=== PATIENT | male | born 1965 | race Caucasian/White ===

== ENCOUNTER 2018-01-21 20:07 | Inpatient (IN) | payer MEDICAID ==
[~2018-01-21] VITALS: Ht 167.6 cm; Wt 119.0 kg
[~2018-01-21 20:07] MED LIST: ALBU8HFA PO; AMLO10TA PO; BUDE10.2 INH; EZET10TA14 PO; FENO134C PO; IBUP-1986 PO; IPRA4AER IH; LEVO750T46 PO; LISI10TA4 PO; METF500T7 PO; MUPI15CR TOP; PANT20TA2 PO; ROSU10TA27 PO; TAM75C PO
[2018-01-21] MEDS ORDERED: albuterol 2.5 MG/3 ML nebule CONTNEB PRN (20:45)
[2018-01-21] MEDS ORDERED: methylPREDNISolone sod succ 125mg/2ml vial IV ONE (20:45)
[2018-01-21] MEDS ORDERED: normal saline 1000ML IV soln IVB ONE (20:45)
[2018-01-21 20:51] LABS: BASOPHILS % (AUTO) 0.3 % (0-1); EOSINOPHILS # (AUTO) 0.3 X10'3 (0-0.9); EOSINOPHILS % (AUTO) 2.7 % (0-6); HEMATOCRIT 45.8 % (42.0-52.0); HEMOGLOBIN 14.8 g/dl (14.0-17.9); LYMPHOCYTES # (AUTO) 1.5 X10'3 (1.1-4.8); LYMPHOCYTES % (AUTO) 14.7 % (21-51); MEAN CORPUSCULAR HEMOGLOBIN 27.8 PG (27.0-31.0); MEAN CORPUSCULAR HGB CONC 32.4 % (33.0-36.5); MEAN PLATELET VOLUME 7.3 FL (7.4-10.4); MONOCYTES # (AUTO) 0.8 X10'3 (0-0.9); MONOCYTES % (AUTO) 7.7 % (2-12); NEUTROPHILS # (AUTO) 7.6 X10'3 (1.8-7.7); NEUTROPHILS % (AUTO) 74.6 % (42-75); PLATELET COUNT 292 X10'3 (140-440); RED BLOOD COUNT 5.32 X10'6 (4.70-6.10); WHITE BLOOD COUNT 10.1 X10'3 (4.5-11.0)
[2018-01-21] MEDS ORDERED: temazepam 15mg capsule PO PRN (21:00)
[2018-01-21 21:11] LABS: ALANINE AMINOTRANSFERASE 21 U/L (12-78); ALBUMIN 2.9 G/DL (3.4-5.0); ALBUMIN/GLOBULIN RATIO 0.7 (1.1-1.5); ALKALINE PHOSPHATASE 102 IU/L (46-116); ANION GAP 6 (8-16); ASPARTATE AMINO TRANSFERASE 8 U/L (10-37); BILIRUBIN,TOTAL 0.2 MG/DL (0.1-1.0); BLOOD UREA NITROGEN 19 MG/DL (7-18); BUN/CREATININE RATIO 14.7 (5.4-32.0); CALCIUM 8.4 MG/DL (8.5-10.1); CHLORIDE 104 MMOL/L (99-107); CREATININE 1.29 MG/DL (0.60-1.10); GLUCOSE 209 MG/DL (70-104); POTASSIUM 4.7 MMOL/L (3.5-5.1); SODIUM 144 MMOL/L (135-145); TOTAL CARBON DIOXIDE 34.1 MMOL/L (24-32); TOTAL PROTEIN 6.8 G/DL (6.4-8.2); eGFR 58 ML/MIN
[2018-01-21 21:15] LABS: ABG HCO3 32.1 mmol/L (22.0-26.0); ABG OXYGEN SATURATION 93.4 % (95-98); ABG PCO2 (T) 55.7 mmHg (35.0-48.0); ABG PH (T) 7.377 (7.350-7.450); ABG PO2 (T) 66.1 mmHg (83-108); ALLEN'S TEST Positive; FCOHb 1.4 % (0.5-1.5); FLOW 3 L/min; FMetHb 0.2 % (0.3-1.12); FO2Hb 91.9 % (94-100); PATIENT TEMPERATURE 36.7; RESPIRATORY RATE (OBSERVED) 20 b/min; TOTAL HEMOGLOBIN 15.8 G/dl (14.0-18.0)
[2018-01-21] MEDS ORDERED: normal saline 1000ml 1,000 ML IV SCH (22:58)
[2018-01-21] MEDS ORDERED: HYDROmorphone 1 mg/ml syringe IV PRN ×2 (23:00)
[2018-01-21] MEDS ORDERED: HYDROcodone/acetaminophen 10/325mg tab PO PRN (23:00)
[2018-01-21] MEDS ORDERED: HYDROcodone/acetaminophen 5mg/325mg tablet PO PRN (23:00)
[2018-01-21] MEDS ORDERED: diphenhydrAMINE 50 mg/ml inj IV PRN (23:00)
[2018-01-21] MEDS ORDERED: bisacodyl 10mg suppository rectal RC PRN (23:00)
[2018-01-21] MEDS ORDERED: metoclopramide 5 mg/ml inj IV PRN (23:00)
[2018-01-21] MEDS ORDERED: morphine 2 MG/ML inj. syringe IV PRN ×2 (23:00)
[2018-01-21] MEDS ORDERED: magnesium hydroxide 30ml (MOM) UD suspension PO PRN (23:00)
[2018-01-21] MEDS ORDERED: mag hydrox/Alum hydrox/simeth 30ml oral suspension PO PRN (23:00)
[2018-01-21] MEDS ORDERED: acetaminophen 325mg tablet PO PRN (23:00)
[2018-01-21] MEDS ORDERED: diphenhydrAMINE 25mg capsule PO PRN (23:00)
[2018-01-21] MEDS ORDERED: ondansetron/PF 4mg/2ml inj IV PRN (23:00)
[2018-01-21] MEDS ORDERED: acetaminophen 650mg rectal suppository RC PRN (23:00)
[2018-01-21] MEDS ORDERED: INSU100I31 SQ (23:04)
[2018-01-21] MEDS ORDERED: MESSAGE TO PHARMACY PO ONE (23:05)
[2018-01-21] MEDS ORDERED: dextrose 50%-water 50ml dispensing syringe IV PRN ×2 (23:05)
[2018-01-21] MEDS ORDERED: glucagon, human recombinant 1mg kit SUBCUT PRN (23:05)
[2018-01-21] MEDS ORDERED: dextrose ORAL solution 15 GM/59 ML bottle PO PRN ×2 (23:05)
[2018-01-21] MEDS ORDERED: insulin Lispro (HumaLOG) vial - multi-dose SQ SCH (23:05)
[2018-01-21] MEDS ORDERED: ipratropium/albuterol 3ml nebule IH PRN ×2 (23:15→23:19)
[2018-01-21 23:29] LABS: MAGNESIUM 1.7 MG/DL (1.5-2.4); PHOSPHORUS 6.2 MG/DL (2.3-4.5)
[2018-01-21 23:40] VITALS: BP 156/92
[2018-01-21 23:43] LABS: D-DIMER 0.44 MG/L FEU (0-0.50)
[2018-01-22] VITALS (8 sets, daily range): BP systolic 96–148; BP diastolic 48–115
[2018-01-22] MEDS ORDERED: methylPREDNISolone sod succ 125mg/2ml vial IV ONE
[2018-01-22] MEDS: heparin, porcine 5000 units/ml vial SQ SCH ×3 (00:17→16:49)
[2018-01-22] MEDS: furosemide 10 MG/1 ML 10ml inj IV SCH ×2 (00:17→09:08)
[2018-01-22 03:16] LABS: BASOPHILS # (AUTO) 0.1 X10'3 (0-0.2); BASOPHILS % (AUTO) 0.9 % (0-1); EOSINOPHILS % (AUTO) 0 % (0-6); HEMATOCRIT 47.6 % (42.0-52.0); HEMOGLOBIN 15.4 g/dl (14.0-17.9); LYMPHOCYTES # (AUTO) 0.4 X10'3 (1.1-4.8); LYMPHOCYTES % (AUTO) 3.3 % (21-51); MEAN CORPUSCULAR HGB CONC 32.5 % (33.0-36.5); MEAN CORPUSCULAR VOLUME 86.3 FL (78-98); MEAN PLATELET VOLUME 7.8 FL (7.4-10.4); MONOCYTES % (AUTO) 0.4 % (2-12); NEUTROPHILS # (AUTO) 10.6 X10'3 (1.8-7.7); NEUTROPHILS % (AUTO) 95.4 % (42-75); PLATELET COUNT 273 X10'3 (140-440); RED BLOOD COUNT 5.52 X10'6 (4.70-6.10); RED CELL DISTRIBUTION WIDTH 14.8 % (11.5-14.5); WHITE BLOOD COUNT 11.1 X10'3 (4.5-11.0)
[2018-01-22 03:56] LABS: ALANINE AMINOTRANSFERASE 21 U/L (12-78); ALBUMIN 3.2 G/DL (3.4-5.0); ALBUMIN/GLOBULIN RATIO 0.7 (1.1-1.5); ALKALINE PHOSPHATASE 105 IU/L (46-116); ANION GAP 6 (8-16); ASPARTATE AMINO TRANSFERASE 5 U/L (10-37); BILIRUBIN,TOTAL 0.4 MG/DL (0.1-1.0); BLOOD UREA NITROGEN 29 MG/DL (7-18); BUN/CREATININE RATIO 19.1 (5.4-32.0); CALCIUM 9.3 MG/DL (8.5-10.1); CHLORIDE 98 MMOL/L (99-107); CHOL/HDL RATIO 6.2 (0.00-4.99); CHOLESTEROL 259 MG/DL (0-200); CREATININE 1.52 MG/DL (0.60-1.10); GLUCOSE 432 MG/DL (70-104); HDL CHOLESTEROL 42 MG/DL (35-60); LDL CHOLESTEROL 191 MG/DL (50-100); POTASSIUM 4.9 MMOL/L (3.5-5.1); SODIUM 138 MMOL/L (135-145); TOTAL CARBON DIOXIDE 33.7 MMOL/L (24-32); TOTAL PROTEIN 7.5 G/DL (6.4-8.2); TRIGLYCERIDES 101 MG/DL (20-135); eGFR 48 ML/MIN
[2018-01-22 07:26] LABS: ABG BASE EXCESS 1.9 mmol/L (-2.0-3.0); ABG HCO3 30.2 mmol/L (22.0-26.0); ABG OXYGEN SATURATION 96.3 % (95-98); ABG PH (T) 7.305 (7.350-7.450); ABG PO2 (T) 87.6 mmHg (83-108); ALLEN'S TEST Positive; FCOHb 1.1 % (0.5-1.5); FMetHb 0.3 % (0.3-1.12); MINUTE VOLUME 22 L/min; RESPIRATORY RATE 20 b/min; RESPIRATORY RATE (OBSERVED) 28 b/min; TIDAL VOLUME 723 mL; TOTAL HEMOGLOBIN 16.4 G/dl (14.0-18.0)
[2018-01-22] MEDS ORDERED: normal saline 1000ml 1,000 ML IV ONE (07:50)
[2018-01-22] MEDS ORDERED: insulin Lispro (HumaLOG) vial - multi-dose SQ ONE (07:50)
[2018-01-22] MEDS ORDERED: dextrose 50%-water 50ml dispensing syringe IV PRN ×3 (07:50→10:15)
[2018-01-22] MEDS: docusate sod 100mg capsule PO SCH ×2 (08:00→19:34)
[2018-01-22] MEDS ORDERED: insulin regular, human 100 UNIT in normal saline 100ml IV soln 99 ML IV SCH ×2 (08:10)
[2018-01-22] MEDS: famotidine 20mg tablet PO SCH ×2 (09:07→19:35)
[2018-01-22] MEDS: levoFLOXACIN-Levaquin 750MG/D5 150 ML IV SCH (09:07)
[2018-01-22] MEDS ORDERED: MESSAGE TO PHARMACY PO ONE (10:15)
[2018-01-22] MEDS ORDERED: dextrose ORAL solution 15 GM/59 ML bottle PO PRN ×2 (10:15)
[2018-01-22] MEDS: normal saline 1000ml 1,000 ML IV SCH ×2 (10:15→19:40)
[2018-01-22] MEDS ORDERED: glucagon, human recombinant 1mg kit SUBCUT PRN (10:15)
[2018-01-22] MEDS: albuterol 2.5 MG/3 ML nebule NEB SCH ×3 (11:00→19:00)
[2018-01-22] MEDS: ipratropium/albuterol 3ml nebule NEB SCH ×4 (12:39→23:09)
[2018-01-22] MEDS: insulin Lispro (HumaLOG) vial - multi-dose SQ SCH ×3 (13:03→21:33)
[2018-01-22] MEDS: methylPREDNISolone sod succ 125mg/2ml vial IV SCH ×2 (14:22→19:34)
[2018-01-22 18:20] LABS: CLARITY,URINE CLEAR (Clear); COLOR,URINE YELLOW (Yellow); GLUCOSE, URINE >=1000 mg/dl (Neg); KETONES,URINE NEGATIVE (Neg); LEUKOCYTE ESTERASE ,URINE NEGATIVE (Neg); NITRITES, URINE NEGATIVE (Neg); OCCULT BLOOD,URINE TRACE-INTACT (Neg); PROTEIN,URINE 100 mg/dl (Neg); UROBILINOGEN,URINE 0.2 E.U/dL (0.2-1.0)
[2018-01-22 18:21] LABS: UA COLLECTION TYPE URINAL
[2018-01-22 18:27] LABS: URINE AMPHETAMINE SCREEN NEGATIVE (Neg); URINE BARBITUATE SCREEN NEGATIVE (Neg); URINE BENZODIAZEPINES SCREEN NEGATIVE (Neg); URINE CANNABINOID SCREEN POSITIVE (Neg); URINE COCAINE SCREEN NEGATIVE (Neg); URINE METHADONE SCREEN NEGATIVE (Neg); URINE OPIATE SCREEN NEGATIVE (Neg); URINE PHENCYCLIDINE SCREEN NEGATIVE (Neg)
[2018-01-22 18:32] LABS: BACTERIA,URINE NONE SEEN /HPF (Neg); RBC,URINE 0-2 /HPF (0-2); WBC,URINE 0-4 /HPF (0-4)
[2018-01-22 18:33] LABS: SQUAMOUS EPITHELIAL CELL,UR NONE SEEN /LPF (FEW)
[2018-01-22] MEDS: budesonide 0.5mg/2ml UD nebule IH SCH (19:22)
[2018-01-22] MEDS: furosemide 40mg/4ml inj IV SCH (19:34)
[2018-01-22] MEDS: lactobacillus rhamnosus 10,000 MMU CELLS/CAPSULE PO SCH (19:35)
[2018-01-22] MEDS: insulin glargine (Lantus) pen - multi-dose SQ SCH (21:35)
[2018-01-23] VITALS (7 sets, daily range): BP systolic 113–148; BP diastolic 63–89
[2018-01-23] MEDS: methylPREDNISolone sod succ 125mg/2ml vial IV SCH (01:14)
[2018-01-23] MEDS: heparin, porcine 5000 units/ml vial SQ SCH ×4 (01:14→23:30)
[2018-01-23 02:02] LABS: BASOPHILS # (AUTO) 0.1 X10'3 (0-0.2); BASOPHILS % (AUTO) 0.9 % (0-1); EOSINOPHILS % (AUTO) 0 % (0-6); HEMATOCRIT 45.2 % (42.0-52.0); HEMOGLOBIN 14.6 g/dl (14.0-17.9); LYMPHOCYTES # (AUTO) 0.4 X10'3 (1.1-4.8); LYMPHOCYTES % (AUTO) 2.4 % (21-51); MEAN CORPUSCULAR HEMOGLOBIN 27.8 PG (27.0-31.0); MEAN CORPUSCULAR HGB CONC 32.3 % (33.0-36.5); MEAN CORPUSCULAR VOLUME 86.1 FL (78-98); MONOCYTES # (AUTO) 0.3 X10'3 (0-0.9); MONOCYTES % (AUTO) 2.1 % (2-12); NEUTROPHILS # (AUTO) 15.6 X10'3 (1.8-7.7); NEUTROPHILS % (AUTO) 94.6 % (42-75); PLATELET COUNT 299 X10'3 (140-440); RED BLOOD COUNT 5.25 X10'6 (4.70-6.10); WHITE BLOOD COUNT 16.5 X10'3 (4.5-11.0)
[2018-01-23 02:40] LABS: ALANINE AMINOTRANSFERASE 20 U/L (12-78); ALBUMIN 2.9 G/DL (3.4-5.0); ALBUMIN/GLOBULIN RATIO 0.7 (1.1-1.5); ALKALINE PHOSPHATASE 96 IU/L (46-116); ASPARTATE AMINO TRANSFERASE 8 U/L (10-37); BILIRUBIN,TOTAL 0.3 MG/DL (0.1-1.0); BLOOD UREA NITROGEN 36 MG/DL (7-18); CHLORIDE 97 MMOL/L (99-107); GLUCOSE 409 MG/DL (70-104); SODIUM 136 MMOL/L (135-145); TOTAL PROTEIN 6.9 G/DL (6.4-8.2)
[2018-01-23 02:43] LABS: POTASSIUM 4.8 MMOL/L (3.5-5.1)
[2018-01-23 02:44] LABS: ANION GAP 8 (8-16); BUN/CREATININE RATIO 27.7 (5.4-32.0); CALCIUM 8.7 MG/DL (8.5-10.1); TOTAL CARBON DIOXIDE 31.5 MMOL/L (24-32); eGFR 58 ML/MIN
[2018-01-23] MEDS: ipratropium/albuterol 3ml nebule NEB SCH ×6 (03:07→23:28)
[2018-01-23] MEDS: insulin Lispro (HumaLOG) vial - multi-dose SQ SCH ×5 (03:40→21:26)
[2018-01-23] MEDS: albuterol 2.5 MG/3 ML nebule NEB SCH ×2 (07:00→11:00)
[2018-01-23] MEDS: lactobacillus rhamnosus 10,000 MMU CELLS/CAPSULE PO SCH ×2 (07:33→20:03)
[2018-01-23] MEDS: docusate sod 100mg capsule PO SCH ×2 (07:33→20:03)
[2018-01-23] MEDS: levoFLOXACIN-Levaquin 750MG/D5 150 ML IV SCH (07:34)
[2018-01-23] MEDS: famotidine 20mg tablet PO SCH ×2 (07:34→20:03)
[2018-01-23] MEDS: methylPREDNISolone sod succ/PF 40mg inj. IV SCH ×3 (07:56→23:30)
[2018-01-23] MEDS: furosemide 40mg/4ml inj IV SCH ×2 (07:56→20:03)
[2018-01-23] MEDS: budesonide 0.5mg/2ml UD nebule IH SCH ×2 (08:00→19:42)
[2018-01-23] MEDS ORDERED: furosemide 10 MG/1 ML 10ml inj IV ONE (10:35)
[2018-01-23] MEDS: insulin glargine (Lantus) pen - multi-dose SQ SCH (21:28)
[2018-01-24 02:00] VITALS: BP 131/86
[2018-01-24] MEDS: ipratropium/albuterol 3ml nebule NEB SCH ×6 (03:33→23:04)
[2018-01-24 06:00] VITALS: BP 110/67
[2018-01-24 07:01] LABS: BASOPHILS % (AUTO) 0 % (0-1); EOSINOPHILS % (AUTO) 0 % (0-6); HEMATOCRIT 45.1 % (42.0-52.0); HEMOGLOBIN 14.7 g/dl (14.0-17.9); LYMPHOCYTES # (AUTO) 0.8 X10'3 (1.1-4.8); MEAN CORPUSCULAR HEMOGLOBIN 27.9 PG (27.0-31.0); MEAN CORPUSCULAR HGB CONC 32.6 % (33.0-36.5); MEAN CORPUSCULAR VOLUME 85.6 FL (78-98); MEAN PLATELET VOLUME 8.2 FL (7.4-10.4); MONOCYTES # (AUTO) 0.6 X10'3 (0-0.9); MONOCYTES % (AUTO) 3.6 % (2-12); NEUTROPHILS # (AUTO) 14.3 X10'3 (1.8-7.7); NEUTROPHILS % (AUTO) 91.4 % (42-75); PLATELET COUNT 309 X10'3 (140-440); RED BLOOD COUNT 5.27 X10'6 (4.70-6.10); RED CELL DISTRIBUTION WIDTH 15.3 % (11.5-14.5); WHITE BLOOD COUNT 15.6 X10'3 (4.5-11.0)
[2018-01-24] MEDS: docusate sod 100mg capsule PO SCH ×2 (07:19→21:48)
[2018-01-24] MEDS: famotidine 20mg tablet PO SCH ×2 (07:19→21:48)
[2018-01-24] MEDS: lactobacillus rhamnosus 10,000 MMU CELLS/CAPSULE PO SCH ×2 (07:19→21:48)
[2018-01-24] MEDS: furosemide 40mg/4ml inj IV SCH ×2 (07:20→21:47)
[2018-01-24] MEDS: heparin, porcine 5000 units/ml vial SQ SCH ×2 (07:21→16:01)
[2018-01-24] MEDS: levoFLOXACIN-Levaquin 750MG/D5 150 ML IV SCH (07:21)
[2018-01-24] MEDS: methylPREDNISolone sod succ/PF 40mg inj. IV SCH ×2 (07:21→21:47)
[2018-01-24 07:34] LABS: ALANINE AMINOTRANSFERASE 17 U/L (12-78); ALBUMIN/GLOBULIN RATIO 0.8 (1.1-1.5); ALKALINE PHOSPHATASE 88 IU/L (46-116); ANION GAP 10 (8-16); BILIRUBIN,TOTAL 0.3 MG/DL (0.1-1.0); BLOOD UREA NITROGEN 51 MG/DL (7-18); BUN/CREATININE RATIO 37.8 (5.4-32.0); CALCIUM 8.7 MG/DL (8.5-10.1); CHLORIDE 96 MMOL/L (99-107); CREATININE 1.35 MG/DL (0.60-1.10); GLUCOSE 330 MG/DL (70-104); SODIUM 135 MMOL/L (135-145); TOTAL CARBON DIOXIDE 29.3 MMOL/L (24-32); eGFR 55 ML/MIN
[2018-01-24 07:39] LABS: ASPARTATE AMINO TRANSFERASE 14 U/L (10-37); POTASSIUM 4.7 MMOL/L (3.5-5.1)
[2018-01-24] MEDS: budesonide 0.5mg/2ml UD nebule IH SCH ×2 (08:04→19:17)
[2018-01-24] MEDS: insulin Lispro (HumaLOG) vial - multi-dose SQ SCH ×3 (08:44→19:25)
[2018-01-24 11:00] VITALS: BP 128/57
[2018-01-24 15:00] VITALS: BP 113/87
[2018-01-24 18:00] VITALS: BP 127/78
[2018-01-24 22:00] VITALS: BP 118/72
[2018-01-24] MEDS: insulin glargine (Lantus) pen - multi-dose SQ SCH (23:06)
[2018-01-25] MEDS: heparin, porcine 5000 units/ml vial SQ SCH ×2 (00:33→08:47)
[2018-01-25 02:00] VITALS: BP 124/76
[2018-01-25] MEDS: ipratropium/albuterol 3ml nebule NEB SCH ×4 (03:08→15:08)
[2018-01-25 06:00] VITALS: BP 121/81
[2018-01-25 06:59] LABS: BASOPHILS % (AUTO) 0 % (0-1); EOSINOPHILS % (AUTO) 0.1 % (0-6); HEMATOCRIT 48.6 % (42.0-52.0); HEMOGLOBIN 15.6 g/dl (14.0-17.9); LYMPHOCYTES # (AUTO) 0.7 X10'3 (1.1-4.8); LYMPHOCYTES % (AUTO) 6.2 % (21-51); MEAN CORPUSCULAR HEMOGLOBIN 27.7 PG (27.0-31.0); MEAN CORPUSCULAR HGB CONC 32.1 % (33.0-36.5); MEAN CORPUSCULAR VOLUME 86.3 FL (78-98); MONOCYTES # (AUTO) 0.5 X10'3 (0-0.9); MONOCYTES % (AUTO) 4.3 % (2-12); NEUTROPHILS # (AUTO) 10.7 X10'3 (1.8-7.7); NEUTROPHILS % (AUTO) 89.4 % (42-75); PLATELET COUNT 290 X10'3 (140-440); RED BLOOD COUNT 5.64 X10'6 (4.70-6.10); RED CELL DISTRIBUTION WIDTH 14.9 % (11.5-14.5)
[2018-01-25 07:07] LABS: ALANINE AMINOTRANSFERASE 18 U/L (12-78); ALBUMIN/GLOBULIN RATIO 0.8 (1.1-1.5); ALKALINE PHOSPHATASE 85 IU/L (46-116); ANION GAP 5 (8-16); ASPARTATE AMINO TRANSFERASE 6 U/L (10-37); BILIRUBIN,TOTAL 0.4 MG/DL (0.1-1.0); BLOOD UREA NITROGEN 49 MG/DL (7-18); BUN/CREATININE RATIO 35.8 (5.4-32.0); CALCIUM 8.8 MG/DL (8.5-10.1); CHLORIDE 97 MMOL/L (99-107); CREATININE 1.37 MG/DL (0.60-1.10); GLUCOSE 322 MG/DL (70-104); SODIUM 135 MMOL/L (135-145); TOTAL CARBON DIOXIDE 33.3 MMOL/L (24-32); TOTAL PROTEIN 6.7 G/DL (6.4-8.2); eGFR 55 ML/MIN
[2018-01-25] MEDS: budesonide 0.5mg/2ml UD nebule IH SCH (07:14)
[2018-01-25] MEDS: insulin Lispro (HumaLOG) vial - multi-dose SQ SCH ×2 (08:40→13:28)
[2018-01-25] MEDS: lactobacillus rhamnosus 10,000 MMU CELLS/CAPSULE PO SCH (08:47)
[2018-01-25] MEDS: docusate sod 100mg capsule PO SCH (08:47)
[2018-01-25] MEDS: famotidine 20mg tablet PO SCH (08:47)
[2018-01-25] MEDS: furosemide 40mg/4ml inj IV SCH (08:47)
[2018-01-25] MEDS: methylPREDNISolone sod succ/PF 40mg inj. IV SCH (08:48)
[2018-01-25] MEDS: levoFLOXACIN-Levaquin 750MG/D5 150 ML IV SCH (08:57)
[2018-01-25 11:00] VITALS: BP 130/86
[2018-01-25] MEDS ORDERED: LEVO500T89 PO (15:13)
[2018-01-25] MEDS ORDERED: LACT1CAP26 PO (15:13)
[2018-01-25] MEDS ORDERED: METF-950 PO (15:13)
[2018-01-25] MEDS ORDERED: SAXA5TAB PO (15:13)
[2018-01-25] MEDS ORDERED: PRED20TA PO (15:13)
[2018-01-25] MEDS ORDERED: FAMO20TA8 PO (15:13)
[2018-01-25] MEDS ORDERED: COL100C PO (15:13)
[2018-01-25] MEDS ORDERED: LISI10TA4 PO (15:41)
[2018-01-25] MEDS ORDERED: ATOR20TA66 PO (15:41)
== END 2018-01-25 17:20 | disposition home health service (06) | DRG 140 ==
LOC: ER 20:08 → PCU 3S 23:42 → CMPBEDREQ 01-22 00:03
PROVIDERS: ADMIT Family Medicine; ATTEND Family Medicine
PROC: 5A09357 Assistance with Respiratory Ventilation, Less than 24 Consecutive Hours, Continuous Positive Airway Pressure (ICD-10-PCS; principal; 2018-01-21)
PROC: 5A09357 Assistance with Respiratory Ventilation, Less than 24 Consecutive Hours, Continuous Positive Airway Pressure (ICD-10-PCS; 2018-01-22)
PROC: 5A09357 Assistance with Respiratory Ventilation, Less than 24 Consecutive Hours, Continuous Positive Airway Pressure (ICD-10-PCS; 2018-01-23)
PROC: 5A09357 Assistance with Respiratory Ventilation, Less than 24 Consecutive Hours, Continuous Positive Airway Pressure (ICD-10-PCS; 2018-01-24)
PROC: 5A09357 Assistance with Respiratory Ventilation, Less than 24 Consecutive Hours, Continuous Positive Airway Pressure (ICD-10-PCS; 2018-01-25)
DX: J44.0 Chronic obstructive pulmonary disease with (acute) lower respiratory infection (principal); J96.21 Acute and chronic respiratory failure with hypoxia; I50.33 Acute on chronic diastolic (congestive) heart failure; J18.1 Lobar pneumonia, unspecified organism; J44.1 Chronic obstructive pulmonary disease with (acute) exacerbation; F12.90 Cannabis use, unspecified, uncomplicated; E66.2 Morbid (severe) obesity with alveolar hypoventilation; G89.29 Other chronic pain; R91.1 Solitary pulmonary nodule; F19.10 Other psychoactive substance abuse, uncomplicated; E11.65 Type 2 diabetes mellitus with hyperglycemia; Z99.81 Dependence on supplemental oxygen; Z91.14 Patient's other noncompliance with medication regimen; Z85.47 Personal history of malignant neoplasm of testis; Z79.4 Long term (current) use of insulin; Z87.891 Personal history of nicotine dependence; Z79.899 Other long term (current) drug therapy; Z71.51 Drug abuse counseling and surveillance of drug abuser; Z68.41 Body mass index [BMI] 40.0-44.9, adult
CPT/HCPCS: 36415; 36600; 71045; 71250; 80053; 80061; 80305; 81001; 82803; 82948; 83036; 83605; 83735; 83880; 84100; 84484; 85018; 85025; 85379; 87040; 87070; 87088; 93005; 93306; 94640; 94660; 94760; 96374; 97116; 97161; 97530; 99285; G0378; J1644; J1815; J1940; J1956; J2920; J2930; J7030; J7626

== ENCOUNTER 2018-02-28 16:04 | Emergency (ER) | payer MEDICAID ==
[~2018-02-28] VITALS: Ht 167.6 cm; Wt 108.0 kg
[~2018-02-28 16:04] MED LIST changes: -AMLO10TA PO; +ATOR20TA66 PO; +COL100C PO; -EZET10TA14 PO; +FAMO20TA8 PO; -FENO134C PO; -IBUP-1986 PO; +INSU100I31 SQ; +LACT1CAP26 PO; -LEVO750T46 PO; -METF500T7 PO; -MUPI15CR TOP; -PANT20TA2 PO; -ROSU10TA27 PO; +SAXA5TAB PO; -TAM75C PO
[2018-02-28 17:11] LABS: BASOPHILS % (AUTO) 0.3 % (0-1); EOSINOPHILS % (AUTO) 0.5 % (0-6); HEMATOCRIT 45.6 % (42.0-52.0); HEMOGLOBIN 14.8 g/dl (14.0-17.9); LYMPHOCYTES # (AUTO) 1.4 X10'3 (1.1-4.8); LYMPHOCYTES % (AUTO) 15.8 % (21-51); MEAN CORPUSCULAR HEMOGLOBIN 27.4 PG (27.0-31.0); MEAN CORPUSCULAR HGB CONC 32.4 % (33.0-36.5); MEAN CORPUSCULAR VOLUME 84.7 FL (78-98); MEAN PLATELET VOLUME 7.7 FL (7.4-10.4); MONOCYTES # (AUTO) 1.2 X10'3 (0-0.9); MONOCYTES % (AUTO) 13.9 % (2-12); NEUTROPHILS % (AUTO) 69.5 % (42-75); PLATELET COUNT 219 X10'3 (140-440); RED BLOOD COUNT 5.38 X10'6 (4.70-6.10); RED CELL DISTRIBUTION WIDTH 15.4 % (11.5-14.5); WHITE BLOOD COUNT 8.6 X10'3 (4.5-11.0)
[2018-02-28] MEDS ORDERED: ipratropium/albuterol 3ml nebule NEB ONE (17:20)
[2018-02-28] MEDS ORDERED: methylPREDNISolone sod succ 125mg/2ml vial IV ONE (17:20)
[2018-02-28 17:29] LABS: INR 1.1 INR; PARTIAL THROMBOPLASTIN TIME 28 SECONDS (22-32); PROTHROMBIN TIME 10.7 SECONDS (9.0-12.0)
[2018-02-28 17:40] LABS: ALANINE AMINOTRANSFERASE 21 U/L (12-78); ALBUMIN/GLOBULIN RATIO 0.8 (1.1-1.5); ALKALINE PHOSPHATASE 96 IU/L (46-116); ANION GAP 8 (8-16); ASPARTATE AMINO TRANSFERASE 11 U/L (10-37); BILIRUBIN,TOTAL 0.5 MG/DL (0.1-1.0); BLOOD UREA NITROGEN 16 MG/DL (7-18); CALCIUM 8.3 MG/DL (8.5-10.1); CHLORIDE 101 MMOL/L (99-107); GLUCOSE 220 MG/DL (70-104); POTASSIUM 3.8 MMOL/L (3.5-5.1); SODIUM 137 MMOL/L (135-145); TOTAL CARBON DIOXIDE 27.6 MMOL/L (24-32); TOTAL PROTEIN 6.9 G/DL (6.4-8.2); eGFR 78 ML/MIN
[2018-02-28 18:05] VITALS: BP 109/66
[2018-02-28] MEDS ORDERED: PRED10TA23 PO (19:16)
[2018-02-28] MEDS ORDERED: ALBU8.5H8 IH (19:16)
[2018-02-28] MEDS ORDERED: AZIT250T PO (19:16)
== END 2018-02-28 19:31 | disposition home or self-care (01) ==
LOC: ER 16:04
DX: J44.1 Chronic obstructive pulmonary disease with (acute) exacerbation (principal); E11.9 Type 2 diabetes mellitus without complications; G89.29 Other chronic pain; F12.90 Cannabis use, unspecified, uncomplicated; F15.90 Other stimulant use, unspecified, uncomplicated; Z87.891 Personal history of nicotine dependence; Z79.4 Long term (current) use of insulin; Z79.2 Long term (current) use of antibiotics; Z79.899 Other long term (current) drug therapy
CPT/HCPCS: 36415; 71045; 80053; 84484; 85025; 85610; 85730; 93005; 94640; 94760; 96374; 99284; J2930

== ENCOUNTER 2018-04-10 15:18 | Inpatient (IN) | payer MEDICAID ==
[~2018-04-10] VITALS: Ht 167.6 cm; Wt 131.0 kg
[~2018-04-10 15:18] MED LIST changes: +ALBU8.5H8 IH
[2018-04-10] MEDS ORDERED: ipratropium 0.5 MG/2.5ML nebule IH ONE ×2 (15:55→16:20)
[2018-04-10] MEDS ORDERED: albuterol 2.5 MG/3 ML nebule CONTNEB PRN (15:55)
[2018-04-10] MEDS ORDERED: methylPREDNISolone sod succ 125mg/2ml vial IV ONE (15:55)
[2018-04-10 16:05] LABS: BASOPHILS % (AUTO) 0.3 % (0-1); EOSINOPHILS # (AUTO) 0.2 X10'3 (0-0.9); EOSINOPHILS % (AUTO) 2.1 % (0-6); HEMATOCRIT 44.8 % (42.0-52.0); HEMOGLOBIN 14.4 g/dl (14.0-17.9); LYMPHOCYTES # (AUTO) 1.5 X10'3 (1.1-4.8); LYMPHOCYTES % (AUTO) 14.4 % (21-51); MEAN CORPUSCULAR HEMOGLOBIN 27.8 PG (27.0-31.0); MEAN PLATELET VOLUME 7.4 FL (7.4-10.4); MONOCYTES # (AUTO) 0.9 X10'3 (0-0.9); MONOCYTES % (AUTO) 8.3 % (2-12); NEUTROPHILS # (AUTO) 7.7 X10'3 (1.8-7.7); NEUTROPHILS % (AUTO) 74.9 % (42-75); PLATELET COUNT 264 X10'3 (140-440); RED BLOOD COUNT 5.15 X10'6 (4.70-6.10); RED CELL DISTRIBUTION WIDTH 16.1 % (11.5-14.5); WHITE BLOOD COUNT 10.2 X10'3 (4.5-11.0)
[2018-04-10 16:08] LABS: PARTIAL THROMBOPLASTIN TIME 27 SECONDS (22-32); PROTHROMBIN TIME 9.9 SECONDS (9.0-12.0)
[2018-04-10 16:10] LABS: ALANINE AMINOTRANSFERASE 24 U/L (12-78); ALBUMIN/GLOBULIN RATIO 0.7 (1.1-1.5); ALKALINE PHOSPHATASE 111 IU/L (46-116); ANION GAP 6 (8-16); ASPARTATE AMINO TRANSFERASE 9 U/L (10-37); BILIRUBIN,TOTAL 0.4 MG/DL (0.1-1.0); BLOOD UREA NITROGEN 20 MG/DL (7-18); BUN/CREATININE RATIO 24.7 (5.4-32.0); CALCIUM 8.5 MG/DL (8.5-10.1); CHLORIDE 103 MMOL/L (99-107); CREATININE 0.81 MG/DL (0.60-1.10); GLUCOSE 226 MG/DL (70-104); POTASSIUM 4.4 MMOL/L (3.5-5.1); SODIUM 140 MMOL/L (135-145); TOTAL CARBON DIOXIDE 30.9 MMOL/L (24-32); TOTAL PROTEIN 7.1 G/DL (6.4-8.2); eGFR > 90 ML/MIN
[2018-04-10] MEDS ORDERED: ipratropium/albuterol 3ml nebule IH ONE (16:10)
[2018-04-10] MEDS ORDERED: PANT20TA2 PO (16:41)
[2018-04-10] MEDS ORDERED: IBUP-1986 PO (16:41)
[2018-04-10] MEDS ORDERED: FENO145T36 PO (16:41)
[2018-04-10] MEDS ORDERED: BECL7.3A7 PO (16:41)
[2018-04-10] MEDS ORDERED: LISI10TA4 PO (16:41)
[2018-04-10] MEDS ORDERED: ALBU18HF2 INH (16:41)
[2018-04-10] MEDS ORDERED: NITR0.4T48 SL (16:41)
[2018-04-10] MEDS ORDERED: ATOR20TA66 PO (16:41)
[2018-04-10] MEDS ORDERED: INSU100I31 SQ (16:41)
[2018-04-10] MEDS ORDERED: normal saline 1000ml 1,000 ML IV SCH (17:52)
[2018-04-10] MEDS ORDERED: dextrose 50%-water 50ml dispensing syringe IV PRN ×2 (17:55)
[2018-04-10] MEDS ORDERED: potassium Cl 40MEQ/NS 500ml 500 ML IV PRN ×2 (17:55)
[2018-04-10] MEDS ORDERED: dextrose ORAL solution 15 GM/59 ML bottle PO PRN ×2 (17:55)
[2018-04-10] MEDS ORDERED: albuterol 2.5 MG/3 ML nebule NEB PRN ×2 (17:55→18:25)
[2018-04-10] MEDS ORDERED: magnesium 2GM in 50ml NS 50 ML IV PRN (17:55)
[2018-04-10] MEDS ORDERED: glucagon, human recombinant 1mg kit SUBCUT PRN (17:55)
[2018-04-10] MEDS ORDERED: potassium Cl 20 mEq SR tablet PO PRN ×2 (17:55)
[2018-04-10] MEDS ORDERED: acetaminophen 325mg tablet PO PRN (17:55)
[2018-04-10] MEDS ORDERED: magnesium Cl slow-release 64mg tablet PO PRN (17:55)
[2018-04-10] MEDS ORDERED: ondansetron/PF 4mg/2ml inj IV PRN (17:55)
[2018-04-10] MEDS ORDERED: MESSAGE TO PHARMACY PO ONE (17:55)
[2018-04-10] MEDS ORDERED: magnesium 4gm in 100ml NS 100 ML IV PRN (17:55)
[2018-04-10] MEDS ORDERED: nitroGLYCERIN 0.4mg SUBLingual tab SL SCH (18:15)
[2018-04-10 19:06] LABS: HEMOGLOBIN A1C 8.9 % (4.5-6.2)
--- NOTE | 2018-04-10 19:08 | NUR ---
SERGIO RN. PT RESTING AND EATING PER DIET ORDERS FAMILY AT BEDSIDE RP RN
--- NOTE | 2018-04-10 19:38 | NUR ---
PT GIVEN HH DINNER TRAY. PT IS A&OX4 AND POLITE AND COOPERATIVE. FRIEND, GUTIERREZ, AT BEDSIDE. PT'S 3 HR TROP WAS HEMOLIZED. AWAITING LAB FOR REDRAW. AWAITING IPA.
[2018-04-10] MEDS: methylPREDNISolone sod succ 125mg/2ml vial IV SCH (20:34)
[2018-04-10] MEDS: heparin, porcine 5000 units/ml vial SQ SCH (20:35)
[2018-04-10 21:00] VITALS: BP 124/96
[2018-04-10] MEDS: ipratropium/albuterol 3ml nebule NEB SCH (21:12)
[2018-04-10] MEDS: insulin glargine (Lantus) pen - multi-dose SQ SCH (21:41)
[2018-04-10] MEDS: insulin Lispro (HumaLOG) vial - multi-dose SQ SCH (21:43)
[2018-04-11] VITALS: BP 169/104
[2018-04-11] MEDS: ipratropium/albuterol 3ml nebule NEB SCH ×4 (03:34→20:08)
[2018-04-11 06:18] LABS: BASOPHILS % (AUTO) 0.1 % (0-1); EOSINOPHILS % (AUTO) 0 % (0-6); HEMATOCRIT 41.8 % (42.0-52.0); HEMOGLOBIN 13.3 g/dl (14.0-17.9); LYMPHOCYTES # (AUTO) 0.8 X10'3 (1.1-4.8); LYMPHOCYTES % (AUTO) 7.2 % (21-51); MEAN CORPUSCULAR HEMOGLOBIN 27.6 PG (27.0-31.0); MEAN CORPUSCULAR HGB CONC 31.9 % (33.0-36.5); MEAN CORPUSCULAR VOLUME 86.8 FL (78-98); MEAN PLATELET VOLUME 7.9 FL (7.4-10.4); MONOCYTES # (AUTO) 0.1 X10'3 (0-0.9); MONOCYTES % (AUTO) 1.3 % (2-12); NEUTROPHILS # (AUTO) 10.2 X10'3 (1.8-7.7); NEUTROPHILS % (AUTO) 91.4 % (42-75); PLATELET COUNT 245 X10'3 (140-440); RED BLOOD COUNT 4.82 X10'6 (4.70-6.10); RED CELL DISTRIBUTION WIDTH 15.9 % (11.5-14.5); WHITE BLOOD COUNT 11.1 X10'3 (4.5-11.0)
[2018-04-11 06:36] LABS: ALBUMIN 2.6 G/DL (3.4-5.0); ANION GAP 6 (8-16); BLOOD UREA NITROGEN 21 MG/DL (7-18); BUN/CREATININE RATIO 20.6 (5.4-32.0); CALCIUM 8.5 MG/DL (8.5-10.1); CHLORIDE 102 MMOL/L (99-107); CREATININE 1.02 MG/DL (0.60-1.10); GLUCOSE 356 MG/DL (70-104); MAGNESIUM 1.8 MG/DL (1.5-2.4); POTASSIUM 4.7 MMOL/L (3.5-5.1); SODIUM 139 MMOL/L (135-145); TOTAL CARBON DIOXIDE 30.9 MMOL/L (24-32); eGFR 77 ML/MIN
--- NOTE | 2018-04-11 06:41 | NUR ---
Patient in room KAT 340. I have received report from Sonia RUFFIN and had the opportunity to ask questions and assume patient care.
[2018-04-11 07:00] VITALS: BP 163/99
[2018-04-11] MEDS: levoFLOXACIN-Levaquin 500mg/D5 100 ML IV SCH (07:24)
[2018-04-11] MEDS: methylPREDNISolone sod succ 125mg/2ml vial IV SCH ×2 (07:25→19:13)
[2018-04-11] MEDS: heparin, porcine 5000 units/ml vial SQ SCH ×2 (07:25→19:12)
[2018-04-11] MEDS: pantoprazole 40mg Tablet.DR PO SCH (07:27)
[2018-04-11] MEDS: lisinopril 10 MG tablet PO SCH (07:27)
[2018-04-11] MEDS: K and/or MAG REPLACEMENT MC SCH (08:00)
[2018-04-11] MEDS: insulin Lispro (HumaLOG) vial - multi-dose SQ SCH ×4 (08:55→21:14)
--- NOTE | 2018-04-11 09:51 | NUR ---
Patient's diet has been changed to heart healthy, carbohydrate controlled diet this am as patient's A1C was 8.9, diabetic, blood sugar was 369 mg/dl in am. Compliance with diabetic diet and its importance in managing diabetes were discussed with the patient. Patient verbalized understanding but will need reinforcement as he states "They'd been giving me food tray twice before!"
[2018-04-11 11:00] VITALS: BP 131/59
--- NOTE | 2018-04-11 13:17 | NUR ---
Patient was caught having apples with caramel dip at bedside, he just ate the lunch 100% with calculated carbohydrate intake of 74 gms. Patient told me that his niece brought it and that his niece is aware that he is diabetic. Patient was discouraged from eating extra because he is diabetic, patient became angry about this and states "I can eat what I want!". Patient's insulin protocol increased from level 2 to level 3. Dietitian consult ordered and patient was okay with it
--- NOTE | 2018-04-11 16:10 | NUR ---
Consult: DM A1C 8.9. Pt admit for COPD exacerbation and acute and chronic resp failure. Met pt at bedside gave written and verbal DM ed. Pt is interested in DM class but lives [place] far to attend. Nursing documented pt A/O x2 and pt poor historian per H&P, however pt seemed to understand DM ed. Pt takes meds on regular basis and sees PCP 1 x every 3 months. Pt is currently on CHO control and Heart Healthy diet w/ PO 100%. LBM 04/11. Will continue to monitor. Rec: 1. Continue on CHO control and Heart Healthy diet 2. Monitor for bowel care 3. wt per rx Addendum: 04/11/18 at [address] Amended: Links added. Addendum: 04/11/18 at [address] I have reviewed and agree with note by Laboratory Development Technician. Vivian Herrera RD
[2018-04-11 18:00] VITALS: BP 128/74
--- NOTE | 2018-04-11 18:30 | NUR ---
Patient in room KAT 340. I have received report from Stephanie RUFFIN and had the opportunity to ask questions and assume patient care. Pt in bed, resting comfortably
--- NOTE | 2018-04-11 18:40 | NUR ---
Problems reprioritized. Patient report given, questions answered & plan of care reviewed with Ajay RUFFIN.
[2018-04-11] MEDS: insulin glargine (Lantus) pen - multi-dose SQ SCH (21:13)
[2018-04-12] VITALS: BP 103/56
[2018-04-12] MEDS: ipratropium/albuterol 3ml nebule NEB SCH ×4 (02:44→19:56)
[2018-04-12 04:41] LABS: BASOPHILS # (AUTO) 0.2 X10'3 (0-0.2); BASOPHILS % (AUTO) 1.3 % (0-1); EOSINOPHILS % (AUTO) 0 % (0-6); HEMATOCRIT 41.7 % (42.0-52.0); HEMOGLOBIN 13.4 g/dl (14.0-17.9); LYMPHOCYTES # (AUTO) 0.7 X10'3 (1.1-4.8); LYMPHOCYTES % (AUTO) 5.1 % (21-51); MEAN CORPUSCULAR HEMOGLOBIN 28.1 PG (27.0-31.0); MEAN CORPUSCULAR HGB CONC 32.2 % (33.0-36.5); MEAN CORPUSCULAR VOLUME 87.3 FL (78-98); MEAN PLATELET VOLUME 7.8 FL (7.4-10.4); MONOCYTES # (AUTO) 0.7 X10'3 (0-0.9); MONOCYTES % (AUTO) 4.7 % (2-12); NEUTROPHILS # (AUTO) 12.9 X10'3 (1.8-7.7); NEUTROPHILS % (AUTO) 88.9 % (42-75); PLATELET COUNT 271 X10'3 (140-440); RED BLOOD COUNT 4.78 X10'6 (4.70-6.10); RED CELL DISTRIBUTION WIDTH 15.9 % (11.5-14.5); WHITE BLOOD COUNT 14.5 X10'3 (4.5-11.0)
[2018-04-12 04:48] LABS: ALBUMIN 2.7 G/DL (3.4-5.0); ANION GAP 3 (8-16); BLOOD UREA NITROGEN 34 MG/DL (7-18); BUN/CREATININE RATIO 25.4 (5.4-32.0); CALCIUM 8.6 MG/DL (8.5-10.1); CHLORIDE 103 MMOL/L (99-107); CREATININE 1.34 MG/DL (0.60-1.10); GLUCOSE 414 MG/DL (70-104); SODIUM 139 MMOL/L (135-145); TOTAL CARBON DIOXIDE 33.1 MMOL/L (24-32); eGFR 56 ML/MIN
[2018-04-12 04:50] LABS: POTASSIUM 6.4 MMOL/L (3.5-5.1)
[2018-04-12] MEDS ORDERED: sodium polystyrene sulfonate 15gm/60ml oral suspension PO ONE (04:55)
--- NOTE | 2018-04-12 06:04 | NUR ---
Problems reprioritized. Patient report given, questions answered & plan of care reviewed with Stephanie RUFFIN. Pt sleeping in bed.
--- NOTE | 2018-04-12 06:20 | NUR ---
Patient in room KAT 340. I have received report from Ajay RUFFIN and had the opportunity to ask questions and assume patient care.
--- NOTE | 2018-04-12 06:46 | NUR ---
5.3Spoke to Dr. Smith over the phone - relayed repeat K of 5.3. Dr. Smith said to not give the Kayexalate that was ordered early this am
[2018-04-12 07:00] VITALS: BP 125/80
[2018-04-12] MEDS: pantoprazole 40mg Tablet.DR PO SCH (07:21)
[2018-04-12] MEDS: levoFLOXACIN-Levaquin 500mg/D5 100 ML IV SCH (07:21)
[2018-04-12] MEDS: methylPREDNISolone sod succ 125mg/2ml vial IV SCH ×2 (07:22→19:53)
[2018-04-12] MEDS: lisinopril 10 MG tablet PO SCH (07:22)
[2018-04-12] MEDS: heparin, porcine 5000 units/ml vial SQ SCH ×2 (07:23→19:53)
[2018-04-12] MEDS: K and/or MAG REPLACEMENT MC SCH (08:00)
[2018-04-12] MEDS: insulin Lispro (HumaLOG) vial - multi-dose SQ SCH ×4 (09:19→21:15)
[2018-04-12 12:00] VITALS: BP 125/75
--- NOTE | 2018-04-12 12:22 | NUR ---
Dr. Pena notified about patient's high K level this am: 6.2 then repeat 5.3 Addendum: 04/12/18 at 1253 by Stephanie Milian RN ABG STAT done per Dr. Pena's request
[2018-04-12 13:01] LABS: ABG BASE EXCESS -0.1 mmol/L (-2.0-3.0); ABG HCO3 28.7 mmol/L (22.0-26.0); ABG OXYGEN SATURATION 93.7 % (95-98); ABG PCO2 (T) 65.5 mmHg (35.0-48.0); ABG PO2 (T) 71.7 mmHg (83-108); ALLEN'S TEST Positive; FCOHb 0.4 % (0.5-1.5); FLOW 15 L/min; FMetHb 0.2 % (0.3-1.12); FO2Hb 93.1 % (94-100); RESPIRATORY RATE (OBSERVED) 18 b/min; TOTAL HEMOGLOBIN 14.7 G/dl (14.0-18.0)
--- NOTE | 2018-04-12 14:50 | NUR ---
ABG result seen by Dr. Pena, she ordered BIPAP. Also, received order to transfer patient to PCU/Telemetry. Charge nurse Soraya notified. Patient informed.
--- NOTE | 2018-04-12 15:28 | NUR ---
Per Charge Nurse Soraya, PCU/Telemetry does not have bed available yet so patient will be on BIPAP while in our floor for now
--- NOTE | 2018-04-12 15:43 | NUR ---
RT at bedside setting up BIPAP machine
--- NOTE | 2018-04-12 18:30 | NUR ---
Problems reprioritized. Patient report given, questions answered & plan of care reviewed with Nestor RUFFIN.
--- NOTE | 2018-04-12 18:31 | NUR ---
Patient in room PCU 3016. I have received report from TORRIE RUFFIN and had the opportunity to ask questions and assume patient care.
[2018-04-12 19:51] LABS: ABG BASE EXCESS 4.5 mmol/L (-2.0-3.0); ABG HCO3 32.9 mmol/L (22.0-26.0); ABG OXYGEN SATURATION 93.8 % (95-98); ABG PCO2 (T) 67.3 mmHg (35.0-48.0); ABG PH (T) 7.307 (7.350-7.450); ABG PO2 (T) 71.1 mmHg (83-108); ALLEN'S TEST Positive; FMetHb 0.4 % (0.3-1.12); FO2Hb 92.5 % (94-100); RESPIRATORY RATE 18 b/min; RESPIRATORY RATE (OBSERVED) 29 b/min; TOTAL HEMOGLOBIN 13.9 G/dl (14.0-18.0)
[2018-04-12] MEDS: lactobacillus rhamnosus 10,000 MMU CELLS/CAPSULE PO SCH (19:53)
--- NOTE | 2018-04-12 20:10 | NUR ---
REPORT GIVEN TO RENATE RN AND PT. TRANSFERRED TO TELE PER BED BY LEAF STICKER AND RT.
[2018-04-12] MEDS: insulin glargine (Lantus) pen - multi-dose SQ SCH (21:14)
[2018-04-12 22:00] VITALS: BP 121/71
[2018-04-13 02:00] VITALS: BP 110/58
[2018-04-13] MEDS: ipratropium/albuterol 3ml nebule NEB SCH ×4 (02:26→20:12)
[2018-04-13 06:00] VITALS: BP 122/71
--- NOTE | 2018-04-13 06:11 | NUR ---
RECEIVED REPORT FROM RENATE RN
[2018-04-13 06:14] LABS: ALBUMIN 2.7 G/DL (3.4-5.0); ANION GAP 6 (8-16); BLOOD UREA NITROGEN 39 MG/DL (7-18); BUN/CREATININE RATIO 36.8 (5.4-32.0); CALCIUM 8.8 MG/DL (8.5-10.1); CHLORIDE 101 MMOL/L (99-107); CREATININE 1.06 MG/DL (0.60-1.10); GLUCOSE 368 MG/DL (70-104); POTASSIUM 5.4 MMOL/L (3.5-5.1); SODIUM 137 MMOL/L (135-145); TOTAL CARBON DIOXIDE 30.1 MMOL/L (24-32); eGFR 73 ML/MIN
--- NOTE | 2018-04-13 06:27 | NUR ---
Problems reprioritized. Patient report given, questions answered & plan of care reviewed with LALY HAUSER.
[2018-04-13 06:33] LABS: BASOPHILS % (AUTO) 0.1 % (0-1); EOSINOPHILS % (AUTO) 0 % (0-6); HEMATOCRIT 42.5 % (42.0-52.0); HEMOGLOBIN 13.7 g/dl (14.0-17.9); LYMPHOCYTES # (AUTO) 0.8 X10'3 (1.1-4.8); LYMPHOCYTES % (AUTO) 6.5 % (21-51); MEAN CORPUSCULAR HEMOGLOBIN 27.7 PG (27.0-31.0); MEAN CORPUSCULAR HGB CONC 32.1 % (33.0-36.5); MEAN CORPUSCULAR VOLUME 86.4 FL (78-98); MEAN PLATELET VOLUME 8.1 FL (7.4-10.4); MONOCYTES # (AUTO) 0.5 X10'3 (0-0.9); MONOCYTES % (AUTO) 3.6 % (2-12); NEUTROPHILS # (AUTO) 11.4 X10'3 (1.8-7.7); NEUTROPHILS % (AUTO) 89.8 % (42-75); PLATELET COUNT 262 X10'3 (140-440); RED BLOOD COUNT 4.92 X10'6 (4.70-6.10); WHITE BLOOD COUNT 12.7 X10'3 (4.5-11.0)
[2018-04-13] MEDS: K and/or MAG REPLACEMENT MC SCH (07:37)
[2018-04-13] MEDS: levoFLOXACIN-Levaquin 500mg/D5 100 ML IV SCH (07:48)
[2018-04-13] MEDS: pantoprazole 40mg Tablet.DR PO SCH (07:56)
[2018-04-13] MEDS: lactobacillus rhamnosus 10,000 MMU CELLS/CAPSULE PO SCH ×2 (07:56→20:58)
[2018-04-13] MEDS: heparin, porcine 5000 units/ml vial SQ SCH ×2 (07:57→20:58)
[2018-04-13] MEDS: methylPREDNISolone sod succ 125mg/2ml vial IV SCH ×2 (07:58→20:58)
[2018-04-13] MEDS: insulin Lispro (HumaLOG) vial - multi-dose SQ SCH ×2 (09:11→12:55)
[2018-04-13 11:00] VITALS: BP 140/93
[2018-04-13 15:00] VITALS: BP 122/80
[2018-04-13 18:00] VITALS: BP 123/69
--- NOTE | 2018-04-13 18:10 | NUR ---
gave report to bertha gaytan
--- NOTE | 2018-04-13 18:30 | NUR ---
REPORT RECIEVED FROM HERRERA RUFFIN. PATIENT SITTING UP IN BED ON BIPAP WATCHING THE FOOTBALL GAME. PATIENT HAS NO QUESTIONS OR CONCERNS AT THIS TIME.
[2018-04-13] MEDS: insulin glargine (Lantus) pen - multi-dose SQ SCH (21:54)
[2018-04-13 22:00] VITALS: BP 117/58
[2018-04-14] VITALS (9 sets, daily range): BP systolic 108–139; BP diastolic 58–87
[2018-04-14] MEDS: ipratropium/albuterol 3ml nebule NEB SCH ×4 (03:22→21:06)
[2018-04-14 06:01] LABS: BASOPHILS # (AUTO) 0.1 X10'3 (0-0.2); BASOPHILS % (AUTO) 0.9 % (0-1); EOSINOPHILS % (AUTO) 0 % (0-6); HEMATOCRIT 41.8 % (42.0-52.0); HEMOGLOBIN 13.4 g/dl (14.0-17.9); LYMPHOCYTES # (AUTO) 0.9 X10'3 (1.1-4.8); LYMPHOCYTES % (AUTO) 8.3 % (21-51); MEAN CORPUSCULAR HEMOGLOBIN 27.6 PG (27.0-31.0); MEAN CORPUSCULAR VOLUME 86.3 FL (78-98); MEAN PLATELET VOLUME 7.9 FL (7.4-10.4); MONOCYTES # (AUTO) 0.7 X10'3 (0-0.9); MONOCYTES % (AUTO) 6.5 % (2-12); NEUTROPHILS # (AUTO) 8.8 X10'3 (1.8-7.7); NEUTROPHILS % (AUTO) 84.3 % (42-75); PLATELET COUNT 271 X10'3 (140-440); RED BLOOD COUNT 4.85 X10'6 (4.70-6.10); RED CELL DISTRIBUTION WIDTH 15.7 % (11.5-14.5); WHITE BLOOD COUNT 10.4 X10'3 (4.5-11.0)
[2018-04-14 06:17] LABS: ALBUMIN 2.7 G/DL (3.4-5.0); ANION GAP 5 (8-16); BLOOD UREA NITROGEN 35 MG/DL (7-18); BUN/CREATININE RATIO 33.3 (5.4-32.0); CALCIUM 8.3 MG/DL (8.5-10.1); CHLORIDE 98 MMOL/L (99-107); CREATININE 1.05 MG/DL (0.60-1.10); GLUCOSE 317 MG/DL (70-104); MAGNESIUM 1.9 MG/DL (1.5-2.4); SODIUM 136 MMOL/L (135-145); eGFR 74 ML/MIN
--- NOTE | 2018-04-14 06:26 | NUR ---
Patient in room PCU 3016. I have received report from Lizbeth RUFFIN and had the opportunity to ask questions and assume patient care. Patient resting comfortably in bed. On Bi-Pap 30% FiO2. In no acute distress. Will continue to monitor.
[2018-04-14] MEDS: heparin, porcine 5000 units/ml vial SQ SCH ×2 (08:04→20:56)
[2018-04-14] MEDS: pantoprazole 40mg Tablet.DR PO SCH (08:05)
[2018-04-14] MEDS: lactobacillus rhamnosus 10,000 MMU CELLS/CAPSULE PO SCH ×2 (08:05→20:55)
[2018-04-14] MEDS: methylPREDNISolone sod succ 125mg/2ml vial IV SCH ×2 (08:05→20:55)
[2018-04-14] MEDS: levoFLOXACIN-Levaquin 500mg/D5 100 ML IV SCH (08:06)
[2018-04-14] MEDS: insulin Lispro (HumaLOG) vial - multi-dose SQ SCH ×3 (08:26→18:52)
[2018-04-14] MEDS: K and/or MAG REPLACEMENT MC SCH (08:29)
--- NOTE | 2018-04-14 18:30 | NUR ---
Problems reprioritized. Patient report given, questions answered & plan of care reviewed with Jenifer RUFFIN.
[2018-04-14] MEDS: insulin glargine (Lantus) pen - multi-dose SQ SCH (21:09)
[2018-04-15 03:00] VITALS: BP 110/68
[2018-04-15] MEDS: ipratropium/albuterol 3ml nebule NEB SCH ×4 (03:22→20:54)
[2018-04-15 05:54] LABS: BASOPHILS % (AUTO) 0.1 % (0-1); EOSINOPHILS % (AUTO) 0.1 % (0-6); HEMATOCRIT 43.4 % (42.0-52.0); LYMPHOCYTES # (AUTO) 0.9 X10'3 (1.1-4.8); LYMPHOCYTES % (AUTO) 8.4 % (21-51); MEAN CORPUSCULAR HEMOGLOBIN 27.5 PG (27.0-31.0); MEAN CORPUSCULAR HGB CONC 32.2 % (33.0-36.5); MEAN CORPUSCULAR VOLUME 85.4 FL (78-98); MEAN PLATELET VOLUME 7.7 FL (7.4-10.4); MONOCYTES # (AUTO) 0.2 X10'3 (0-0.9); MONOCYTES % (AUTO) 1.7 % (2-12); NEUTROPHILS # (AUTO) 9.4 X10'3 (1.8-7.7); NEUTROPHILS % (AUTO) 89.7 % (42-75); PLATELET COUNT 262 X10'3 (140-440); RED BLOOD COUNT 5.09 X10'6 (4.70-6.10); RED CELL DISTRIBUTION WIDTH 15.8 % (11.5-14.5); WHITE BLOOD COUNT 10.5 X10'3 (4.5-11.0)
[2018-04-15 06:00] VITALS: BP 134/89
[2018-04-15 06:08] LABS: ALBUMIN 2.7 G/DL (3.4-5.0); ANION GAP 7 (8-16); BLOOD UREA NITROGEN 32 MG/DL (7-18); BUN/CREATININE RATIO 29.4 (5.4-32.0); CALCIUM 8.5 MG/DL (8.5-10.1); CHLORIDE 97 MMOL/L (99-107); CREATININE 1.09 MG/DL (0.60-1.10); GLUCOSE 297 MG/DL (70-104); MAGNESIUM 1.9 MG/DL (1.5-2.4); POTASSIUM 4.8 MMOL/L (3.5-5.1); SODIUM 137 MMOL/L (135-145); TOTAL CARBON DIOXIDE 33.1 MMOL/L (24-32); eGFR 71 ML/MIN
--- NOTE | 2018-04-15 06:13 | NUR ---
Problems reprioritized. Patient report given, questions answered & plan of care reviewed with TANK RUFFIN.
--- NOTE | 2018-04-15 06:15 | NUR ---
[place] documentation: I have reviewed and agree with all interventions, assessments performed and documented by Dipti RUFFIN.
--- NOTE | 2018-04-15 06:17 | NUR ---
[place] Medication Administration: For this medication-pass time frame, all medication were reviewed, dispensed, administered and documented per hospital policy by Dipti RUFFIN.
--- NOTE | 2018-04-15 06:22 | NUR ---
Patient in room PCU 3016. I have received report from Jenifer RUFIFN and had the opportunity to ask questions and assume patient care.
[2018-04-15] MEDS: K and/or MAG REPLACEMENT MC SCH (08:00)
[2018-04-15] MEDS: levoFLOXACIN-Levaquin 500mg/D5 100 ML IV SCH (09:35)
[2018-04-15] MEDS: pantoprazole 40mg Tablet.DR PO SCH (09:35)
[2018-04-15] MEDS: lactobacillus rhamnosus 10,000 MMU CELLS/CAPSULE PO SCH ×2 (09:36→19:42)
[2018-04-15] MEDS: heparin, porcine 5000 units/ml vial SQ SCH ×2 (09:36→19:40)
[2018-04-15] MEDS: methylPREDNISolone sod succ 125mg/2ml vial IV SCH ×2 (09:37→19:39)
[2018-04-15] MEDS: insulin Lispro (HumaLOG) vial - multi-dose SQ SCH ×3 (09:39→19:53)
[2018-04-15 11:00] VITALS: BP 130/87
--- NOTE | 2018-04-15 11:47 | NUR ---
reassessment: Pt PO 100% meals meeting needs. LBM 04/14. GLU 215 on solumedrol. No nutrition concerns at this time. Will continue to monitor. Rec: 1. Continue on CHO control and Heart Healthy diet 2. wt per rx Addendum: 04/15/18 at [address] Amended: Links added.
[2018-04-15 15:00] VITALS: BP 114/78
--- NOTE | 2018-04-15 18:15 | NUR ---
Patient in room PCU 3016. I have received report from Ligia RUFFIN and had the opportunity to ask questions and assume patient care.
--- NOTE | 2018-04-15 18:30 | NUR ---
Problems reprioritized. Patient report given, questions answered & plan of care reviewed with Jenifer RUFFIN.
--- NOTE | 2018-04-15 18:30 | NUR ---
[place] documentation: I have reviewed and agree with all interventions, assessments performed and documented by Ligia RUFFIN. [place] Medication Administration: For this medication-pass time frame, all medication were reviewed, dispensed, administered and documented per hospital policy by Ligia RUFFIN.
[2018-04-15 19:00] VITALS: BP 126/86
[2018-04-15] MEDS: insulin glargine (Lantus) pen - multi-dose SQ SCH (21:16)
[2018-04-15 23:00] VITALS: BP 118/65
[2018-04-16] MEDS: ipratropium/albuterol 3ml nebule NEB SCH ×4 (02:47→21:27)
[2018-04-16 03:00] VITALS: BP 97/58
[2018-04-16 06:00] VITALS: BP 127/76
--- NOTE | 2018-04-16 06:29 | NUR ---
Problems reprioritized. Patient report given, questions answered & plan of care reviewed with CHECO RN.
--- NOTE | 2018-04-16 06:30 | NUR ---
Patient in room PCU 3016. I have received report from LALY BLANCO and had the opportunity to ask questions and assume patient care.
--- NOTE | 2018-04-16 06:41 | NUR ---
[place] documentation: I have reviewed and agree with all interventions, assessments performed and documented by Dipti RUFFIN.
[2018-04-16] MEDS: K and/or MAG REPLACEMENT MC SCH (08:00)
[2018-04-16] MEDS: pantoprazole 40mg Tablet.DR PO SCH (08:06)
[2018-04-16] MEDS: methylPREDNISolone sod succ 125mg/2ml vial IV SCH ×2 (08:07→19:33)
[2018-04-16] MEDS: lactobacillus rhamnosus 10,000 MMU CELLS/CAPSULE PO SCH ×2 (08:09→19:29)
[2018-04-16] MEDS: heparin, porcine 5000 units/ml vial SQ SCH ×2 (08:10→19:30)
[2018-04-16] MEDS: insulin Lispro (HumaLOG) vial - multi-dose SQ SCH ×3 (08:20→18:53)
[2018-04-16 11:00] VITALS: BP 137/84
[2018-04-16] MEDS: levoFLOXACIN 500mg tablet PO SCH (11:09)
[2018-04-16 15:00] VITALS: BP 119/61
--- NOTE | 2018-04-16 15:22 | NUR ---
PAGER ID: [phone] MESSAGE: DR. QUIROGA, [id number]. TRILOGY HAS BEEN DELIVERED. HE QUALIFIES FOR HOME 02, RA SAT 88%. HE IS ASKING WHEN HE WILL BE DISCHARGED. [facility] 2150/5441. TY.
[2018-04-16] MEDS ORDERED: IPRA3AMP9 NEB (15:33)
[2018-04-16] MEDS ORDERED: PRED10TA23 PO (15:33)
[2018-04-16] MEDS ORDERED: PRED5TAB PO (15:35)
--- NOTE | 2018-04-16 16:16 | NUR ---
PAGER ID: [phone] MESSAGE: DR. QUIROGA, [id number]. HE SAYS HE DOES NOT HAVE PORTABLE 02 TANK FOR TRANSPORT. AND HE IS GOING TO [place]. RA SAT WAS 88%. CURRENTLY ON /NC 94%. [facility], 3167/4950. TY.
--- NOTE | 2018-04-16 16:43 | NUR ---
PAGER ID: [phone] MESSAGE: DR. QUIROGA, [id number]/JOE, PLEASE CALL [facility] [id number] R/T DISCHARGE. TY
--- NOTE | 2018-04-16 16:47 | NUR ---
DISCHARGE ON HOLD TILL TOMORROW.
--- NOTE | 2018-04-16 18:29 | NUR ---
Problems reprioritized. Patient report given, questions answered & plan of care reviewed with WHITNEY RN.
[2018-04-16 19:00] VITALS: BP 129/83
[2018-04-16] MEDS: insulin glargine (Lantus) pen - multi-dose SQ SCH (21:12)
--- NOTE | 2018-04-16 23:21 | NUR ---
Patient in room PCU 3016. I have received report from Dipti. Patient to be transferred over to room 345B .
--- NOTE | 2018-04-16 23:45 | NUR ---
Patient arrived to floor on bed from PCU. A&O x4, in no distress. 2 RN skin check and assessment completed. Patient denies having any pain or SOB at this time.
[2018-04-17] VITALS: BP 131/78
--- NOTE | 2018-04-17 | NUR ---
I have assessed patient and I agree with the previous assessment apart from patient on 2 nc, and no longer on tele monitoring.
[2018-04-17] MEDS: ipratropium/albuterol 3ml nebule NEB SCH ×3 (02:50→15:00)
--- NOTE | 2018-04-17 06:00 | NUR ---
Problems reprioritized. Patient report given, questions answered & plan of care reviewed with Sandra Gresham.
[2018-04-17 06:01] LABS: POTASSIUM 5.3 MMOL/L (3.5-5.1)
[2018-04-17 07:00] VITALS: BP 107/57
[2018-04-17] MEDS: K and/or MAG REPLACEMENT MC SCH (08:00)
[2018-04-17] MEDS: insulin Lispro (HumaLOG) vial - multi-dose SQ SCH ×2 (08:50→13:45)
[2018-04-17] MEDS: lactobacillus rhamnosus 10,000 MMU CELLS/CAPSULE PO SCH (08:51)
[2018-04-17] MEDS: methylPREDNISolone sod succ 125mg/2ml vial IV SCH (08:51)
[2018-04-17] MEDS: heparin, porcine 5000 units/ml vial SQ SCH (08:51)
[2018-04-17] MEDS: pantoprazole 40mg Tablet.DR PO SCH (08:51)
[2018-04-17] MEDS ORDERED: DOXY100C2 PO (10:43)
[2018-04-17] MEDS: levoFLOXACIN 500mg tablet PO SCH (11:16)
== END 2018-04-17 17:06 | disposition home or self-care (01) | DRG 140 ==
LOC: ER 15:22 → ED HOLD 17:52 → SUR 3N 20:50 → PCU 3S 04-12 20:19 → SUR 3N 04-16 23:45
PROVIDERS: ADMIT Internal Medicine; ATTEND Family Medicine
PROC: 5A09357 Assistance with Respiratory Ventilation, Less than 24 Consecutive Hours, Continuous Positive Airway Pressure (ICD-10-PCS; principal; 2018-04-12)
PROC: 5A09357 Assistance with Respiratory Ventilation, Less than 24 Consecutive Hours, Continuous Positive Airway Pressure (ICD-10-PCS; 2018-04-13)
PROC: 5A09357 Assistance with Respiratory Ventilation, Less than 24 Consecutive Hours, Continuous Positive Airway Pressure (ICD-10-PCS; 2018-04-14)
PROC: 5A09357 Assistance with Respiratory Ventilation, Less than 24 Consecutive Hours, Continuous Positive Airway Pressure (ICD-10-PCS; 2018-04-15)
PROC: 5A09357 Assistance with Respiratory Ventilation, Less than 24 Consecutive Hours, Continuous Positive Airway Pressure (ICD-10-PCS; 2018-04-16)
PROC: 5A09357 Assistance with Respiratory Ventilation, Less than 24 Consecutive Hours, Continuous Positive Airway Pressure (ICD-10-PCS; 2018-04-17)
DX: J44.1 Chronic obstructive pulmonary disease with (acute) exacerbation (principal); J96.21 Acute and chronic respiratory failure with hypoxia; J96.22 Acute and chronic respiratory failure with hypercapnia; E66.01 Morbid (severe) obesity due to excess calories; Z68.42 Body mass index [BMI] 45.0-49.9, adult; E11.9 Type 2 diabetes mellitus without complications; E78.00 Pure hypercholesterolemia, unspecified; E78.5 Hyperlipidemia, unspecified; E87.5 Hyperkalemia; G47.33 Obstructive sleep apnea (adult) (pediatric); I10 Essential (primary) hypertension; F12.90 Cannabis use, unspecified, uncomplicated; G89.29 Other chronic pain; Z87.891 Personal history of nicotine dependence; Z79.4 Long term (current) use of insulin; Z79.51 Long term (current) use of inhaled steroids; Z85.47 Personal history of malignant neoplasm of testis; Z79.899 Other long term (current) drug therapy
CPT/HCPCS: 36415; 36600; 71045; 80048; 80053; 82803; 82948; 83036; 83735; 83880; 84132; 84484; 85018; 85025; 85610; 85730; 87070; 93005; 94640; 94660; 94667; 94760; 96374; 99285; G0378; J1644; J1815; J1956; J2930; J7030

== ENCOUNTER 2018-04-23 08:13 | Outpatient (CLI) | payer MEDICAID ==
[~2018-04-23] VITALS: Ht 167.6 cm; Wt 172.4 kg
[~2018-04-23 08:13] MED LIST changes: +ALBU18HF2 INH; -ALBU8.5H8 IH; -ALBU8HFA PO; +BECL7.3A7 PO; -BUDE10.2 INH; -COL100C PO; +DOXY100C2 PO; -FAMO20TA8 PO; +FENO145T36 PO; +IPRA3AMP9 NEB; -IPRA4AER IH; -LACT1CAP26 PO; +NITR0.4T48 SL; +PANT20TA2 PO; +PRED5TAB PO; -SAXA5TAB PO
[2018-04-23 08:55] LABS: ABG BASE EXCESS -0.7 mmol/L (-2.0-3.0); ABG OXYGEN SATURATION 94.6 % (95-98); ABG PCO2 (T) 50.3 mmHg (35.0-48.0); ABG PH (T) 7.331 (7.350-7.450); ABG PO2 (T) 75.3 mmHg (83-108); ALLEN'S TEST Positive; FCOHb 0.7 % (0.5-1.5); FLOW 2 L/min; FMetHb 0.1 % (0.3-1.12); FO2Hb 93.8 % (94-100); TOTAL HEMOGLOBIN 15.4 G/dl (14.0-18.0)
[2018-04-23] MEDS ORDERED: albuterol 2.5 MG/3 ML nebule NEB ONE (09:05)
== END 2018-04-23 23:59 | disposition home or self-care (01) ==
LOC: RT 08:13
PROVIDERS: ATTEND Internal Medicine Pulmonary Disease
DX: G47.33 Obstructive sleep apnea (adult) (pediatric) (principal); R06.09 Other forms of dyspnea; R09.02 Hypoxemia; Z87.891 Personal history of nicotine dependence; I11.0 Hypertensive heart disease with heart failure; I50.9 Heart failure, unspecified; J44.9 Chronic obstructive pulmonary disease, unspecified; E11.9 Type 2 diabetes mellitus without complications; Z79.4 Long term (current) use of insulin
CPT/HCPCS: 36600; 82803; 85018; 94060; 94727; 94729; 94760

== ENCOUNTER 2018-07-11 08:49 | Day surgery (SDC) | payer MEDICAID ==
[2018-07-11] VITALS (9 sets, daily range): BP systolic 125–150; BP diastolic 77–94
[~2018-07-11] VITALS: Ht 167.6 cm; Wt 128.5 kg
[~2018-07-11 08:49] MED LIST changes: -DOXY100C2 PO
[2018-07-11] MEDS ORDERED: sodium bicarbonate (8.4%) inj. 150 ML in dextrose 5%-water 1,000 ML IV ONE ×2 (09:10→12:05)
[2018-07-11] MEDS ORDERED: normal saline 1,000 ML IV SCH (09:10)
[2018-07-11] MEDS ORDERED: diphenhydrAMINE 25mg capsule PO PRN (09:10)
[2018-07-11] MEDS ORDERED: fentaNYL/PF 50MCG/1 ML 2ML syringe ONE (09:42)
[2018-07-11] MEDS ORDERED: LIDOcaine 1% (10mg/ml)w/preservative injection 20ml MDV ONE (09:43)
[2018-07-11] MEDS ORDERED: midazolam 2 mg/2 ml injection ONE (09:43)
[2018-07-11] MEDS ORDERED: iohexol 350MG/ML 100ml bottle IV ONE (09:44)
[2018-07-11] MEDS ORDERED: iohexol 350 MG/ML 50ML vial IV ONE ×2 (09:44→11:24)
[2018-07-11] MEDS ORDERED: proCHLORperazine 10 MG/2 ml inj ONE (10:49)
[2018-07-11 10:51] LABS: BASOPHILS % (AUTO) 0.4 % (0-1); EOSINOPHILS # (AUTO) 0.2 X10'3 (0-0.9); EOSINOPHILS % (AUTO) 1.6 % (0-6); HEMOGLOBIN 14.2 g/dl (14.0-17.9); LYMPHOCYTES # (AUTO) 2.1 X10'3 (1.1-4.8); LYMPHOCYTES % (AUTO) 21.6 % (21-51); MEAN CORPUSCULAR HEMOGLOBIN 27.8 PG (27.0-31.0); MEAN CORPUSCULAR HGB CONC 32.9 g/dL (33.0-36.5); MEAN CORPUSCULAR VOLUME 84.3 FL (78-98); MEAN PLATELET VOLUME 7.3 FL (7.4-10.4); NEUTROPHILS # (AUTO) 6.6 X10'3 (1.8-7.7); NEUTROPHILS % (AUTO) 66.4 % (42-75); PLATELET COUNT 276 X10'3 (140-440); RED CELL DISTRIBUTION WIDTH 15.3 % (11.5-14.5); WHITE BLOOD COUNT 9.9 X10'3 (4.5-11.0)
[2018-07-11 10:58] LABS: ALBUMIN 3.4 G/DL (3.4-5.0); ANION GAP 11 (8-16); BLOOD UREA NITROGEN 24 MG/DL (7-18); BUN/CREATININE RATIO 24.7 (5.4-32.0); CHLORIDE 105 MMOL/L (99-107); CREATININE 0.97 MG/DL (0.60-1.10); GLUCOSE 176 MG/DL (70-104); MAGNESIUM 1.6 MG/DL (1.5-2.4); POTASSIUM 3.9 MMOL/L (3.5-5.1); SODIUM 139 MMOL/L (135-145); TOTAL CARBON DIOXIDE 22.9 MMOL/L (24-32); eGFR 81 ML/MIN
[2018-07-11] MEDS ORDERED: heparin 1,000unit/ml 10ml vial 10 ML ONE ×2 (10:58→11:19)
[2018-07-11] MEDS ORDERED: verapamil 2.5 mg/ml inj IV ONE (10:58)
[2018-07-11] MEDS ORDERED: nitroGLYCERIN-Tridil 50MG/D5W 250 ML IV ONE (10:58)
[2018-07-11] MEDS ORDERED: ticagrelor 90mg tablet ONE (11:32)
== END 2018-07-11 15:30 | disposition home or self-care (01) ==
LOC: SSTAY O 08:49
PROVIDERS: ATTEND Internal Medicine Cardiovascular Disease
DX: I25.10 Atherosclerotic heart disease of native coronary artery without angina pectoris (principal); I25.84 Coronary atherosclerosis due to calcified coronary lesion; J44.9 Chronic obstructive pulmonary disease, unspecified; E11.9 Type 2 diabetes mellitus without complications; E78.5 Hyperlipidemia, unspecified; I10 Essential (primary) hypertension; Z87.891 Personal history of nicotine dependence; E66.3 Overweight
CPT/HCPCS: 36415; 80048; 83735; 85025; 85610; 93005; 93458; 99152; 99153; A6257; C1874; C9600; J0780; J1644; J2001; J2250; J3010; J7030; Q0163; Q9967; A4620; C1769; C1894; J3490

== ENCOUNTER 2019-04-15 08:36 | Inpatient (IN) | payer MEDICAID ==
[2019-04-10 16:31] LABS: BASOPHILS % (AUTO) 0.3 % (0-1); EOSINOPHILS # (AUTO) 0.2 X10'3 (0-0.9); EOSINOPHILS % (AUTO) 1.7 % (0-6); LYMPHOCYTES # (AUTO) 2.3 X10'3 (1.1-4.8); LYMPHOCYTES % (AUTO) 20.1 % (21-51); MEAN CORPUSCULAR HEMOGLOBIN 27.8 PG (27.0-31.0); MEAN CORPUSCULAR HGB CONC 33.2 g/dL (33.0-36.5); MEAN CORPUSCULAR VOLUME 83.6 FL (78-98); MEAN PLATELET VOLUME 7.1 FL (7.4-10.4); NEUTROPHILS # (AUTO) 7.9 X10'3 (1.8-7.7); NEUTROPHILS % (AUTO) 68.9 % (42-75); PRE OP HEMATOCRIT 44.7 % (42.0-52.0); PRE OP HEMOGLOBIN 14.9 g/dL (14.0-17.9); PRE OP PLATELET COUNT 282 X10'3 (140-440); RED BLOOD COUNT 5.35 X10'6 (4.70-6.10); RED CELL DISTRIBUTION WIDTH 14.4 % (11.5-14.5)
[2019-04-10 16:34] LABS: CLARITY,URINE CLEAR (Clear); COLOR,URINE YELLOW (Yellow); GLUCOSE, URINE NEGATIVE (Neg); KETONES,URINE NEGATIVE (Neg); LEUKOCYTE ESTERASE ,URINE NEGATIVE (Neg); NITRITES, URINE NEGATIVE (Neg); OCCULT BLOOD,URINE NEGATIVE (Neg); PROTEIN,URINE >=300 mg/dl (Neg); UROBILINOGEN,URINE 0.2 E.U/dL (0.2-1.0)
[2019-04-10 16:36] LABS: UA COLLECTION TYPE CLN CATCH MIDSTREAM
[2019-04-10 16:42] LABS: HEMOGLOBIN A1C 7.8 % (4.5-6.2); PRE OP PROTIME 10.3 SECONDS (9.0-12.0)
[2019-04-10 16:44] LABS: RBC,URINE NONE SEEN /HPF (0-2); WBC,URINE 0-4 /HPF (0-4)
[2019-04-10 16:45] LABS: BACTERIA,URINE NONE SEEN /HPF (Neg); COARSE GRANULAR CAST 0-3 /LPF (NEGATIVE); MUCUS STRANDS FEW /LPF (Neg); SQUAMOUS EPITHELIAL CELL,UR FEW /LPF (FEW)
[2019-04-10 16:45] LABS: ALBUMIN 3.7 G/DL (3.4-5.0); ALKALINE PHOSPHATASE 96 IU/L (46-116); BLOOD UREA NITROGEN 27 MG/DL (7-18); BUN/CREATININE RATIO 24.8 (5.4-32.0); CALCIUM 8.7 MG/DL (8.5-10.1); CHLORIDE 108 MMOL/L (99-107); CREATININE 1.09 MG/DL (0.60-1.10); PRE OP ALT 41 U/L (30-65); PRE OP ANION GAP 9 (8-16); PRE OP AST 13 U/L (10-37); PRE OP BILIRUB, TOTAL 0.3 MG/DL (0.0-1.0); PRE OP GLUCOSE 152 MG/DL (70-104); PRE OP POTASSIUM 3.9 MMOL/L (3.4-5.1); PRE OP SODIUM 142 MMOL/L (135-145); TOTAL CARBON DIOXIDE 25.1 MMOL/L (24-32); TOTAL PROTEIN 7.4 G/DL (6.4-8.2); eGFR 71 ML/MIN
[2019-04-15] VITALS (25 sets, daily range): BP systolic 118–158; BP diastolic 56–101
[~2019-04-15] VITALS: Ht 167.6 cm; Wt 133.8 kg
[~2019-04-15 08:36] MED LIST changes: +ASPI-1053 PO; -BECL7.3A7 PO; +CLOP75TA15 PO; +FENO145T26 PO; -FENO145T36 PO; +GABA-532 PO; +IBUP-1984 PO; -IPRA3AMP9 NEB; +LIRA0.6P2 SUBCUT; +LORA10TA7 PO; -PRED5TAB PO; +TIOT18CA3 INH; +albuterol 2.5 MG/3 ML nebule NEB ONE; +ceFOXitin 2 GM ADDvantage bag 100 ML IV ONE; +famotidine 10mg tablet PO ONE; +ringers solution, lacted 1,000 ML IV SCH
[2019-04-15] MEDS ORDERED: ceFAZolin 1000mg inj ONE (11:47)
[2019-04-15] MEDS ORDERED: BUPIVAcaine/PF 2.5 mg/ml (0.25%) 30ml vial ONE (11:47)
[2019-04-15] MEDS ORDERED: sevoflurane 250ml liquid IH ONE (12:13)
[2019-04-15] MEDS ORDERED: midazolam 2 mg/2 ml injection ONE (12:20)
[2019-04-15] MEDS ORDERED: fentaNYL /PF 50mcg/ml 5ml ampule ONE (12:20)
[2019-04-15] MEDS ORDERED: propofol inj 20 ML IV ONE (12:20)
[2019-04-15] MEDS ORDERED: iohexol 300 MG/1 ML 50ml polymer ONE (12:42)
[2019-04-15] MEDS ORDERED: acetaminophen 1,000mg/100ml IV 100 ML IV ONE (14:43)
[2019-04-15] MEDS ORDERED: rocuronium 10mg/ml inj IV ONE ×2 (14:43)
[2019-04-15] MEDS ORDERED: CADD PCA waste documentation MC PRN (15:10)
[2019-04-15] MEDS ORDERED: naloxone 0.4 mg/ml inj IV PRN (15:10)
[2019-04-15] MEDS ORDERED: glycopyrrolate 0.2mg/ml inj ONE (15:15)
[2019-04-15] MEDS ORDERED: neostigmine methylsulfate 1 MG/ML 10ml vial ONE (15:15)
--- NOTE | 2019-04-15 15:23 | NUR ---
Received from OR via BED, accompanied by Anesthesiologist DR LLANOS and report given by Anesthesiologist. PT DROWSY, DENIES PAIN, ABDOMEN W/3 LAP SITES W/BANDAIDS, SMALL ISLAND DRSG TO MID LOWER ABDOMEN, CDI. BROWN CATHETER TO GRAVITY DRAINAGE W/PINK URINE. Addendum: 04/15/19 at 1556 by Amber Goodwin RN Amended: Links added.
[2019-04-15] MEDS: HYDROmorphone/NS 1 mg/ml CADD 50 ML IV SCH ×4 (16:33→23:00)
--- NOTE | 2019-04-15 17:03 | NUR ---
Report called to receiving nurse. Transferred via BED ON CM, 1 BAG OF PERSONAL Belongings SENT W/PT TO ROOM 2039, RECEIVING RN AT BEDSIDE TO RECEIVE PT, SIDE RAILS UP, CALL LIGHT GIVEN TO PT. Special Issues communicated to receiving nurse. YES. Addendum: 04/15/19 at 1717 by Amber Goodwin RN Amended: Links added.
--- NOTE | 2019-04-15 18:05 | NUR ---
Patient in room ICU 2039. I have received report from Shahida, and had the opportunity to ask questions and assume patient care.
[2019-04-15] MEDS: potassium CL 20mEq in D5-1/2NS 1,000 ML IV SCH ×2 (18:59→23:10)
--- NOTE | 2019-04-15 19:00 | NUR ---
Problems reprioritized. Patient report given to Shai, questions answered & plan of care reviewed with .
[2019-04-15] MEDS ORDERED: MESSAGE TO PHARMACY PO ONE (19:30)
[2019-04-15] MEDS ORDERED: glucagon, human recombinant 1mg kit SUBCUT PRN (19:30)
[2019-04-15] MEDS ORDERED: dextrose ORAL solution 15 GM/59 ML bottle PO PRN ×2 (19:30)
[2019-04-15] MEDS ORDERED: dextrose 50%-water 50ml dispensing syringe IV PRN ×2 (19:30)
[2019-04-15] MEDS: insulin glargine (Lantus) pen - multi-dose SQ SCH (21:16)
[2019-04-15] MEDS: docusate sod 100mg capsule PO SCH (21:20)
[2019-04-16] VITALS (21 sets, daily range): BP systolic 94–171; BP diastolic 52–100
[2019-04-16] MEDS: HYDROmorphone/NS 1 mg/ml CADD 50 ML IV SCH ×12 (01:00→23:00)
[2019-04-16] MEDS: potassium CL 20mEq in D5-1/2NS 1,000 ML IV SCH ×2 (03:00→11:21)
--- NOTE | 2019-04-16 06:28 | NUR ---
Problems reprioritized. Patient report given to Baldev, questions answered & plan of care reviewed with .
--- NOTE | 2019-04-16 06:30 | NUR ---
Patient in room ICU 2039. I have received report from robert and had the opportunity to ask questions and assume patient care.
[2019-04-16 07:31] LABS: ALANINE AMINOTRANSFERASE 38 U/L (12-78); ALBUMIN 2.8 G/DL (3.4-5.0); ALBUMIN/GLOBULIN RATIO 0.8 (1.1-1.5); ALKALINE PHOSPHATASE 80 IU/L (46-116); ANION GAP 10 (8-16); ASPARTATE AMINO TRANSFERASE 16 U/L (10-37); BILIRUBIN,TOTAL 0.6 MG/DL (0.1-1.0); BLOOD UREA NITROGEN 14 MG/DL (7-18); BUN/CREATININE RATIO 12.2 (5.4-32.0); CALCIUM 7.4 MG/DL (8.5-10.1); CHLORIDE 105 MMOL/L (99-107); CREATININE 1.15 MG/DL (0.60-1.10); GLUCOSE 281 MG/DL (70-104); MAGNESIUM 1.3 MG/DL (1.5-2.4); PHOSPHORUS 3.2 MG/DL (2.3-4.5); POTASSIUM 4.6 MMOL/L (3.5-5.1); SODIUM 137 MMOL/L (135-145); TOTAL CARBON DIOXIDE 21.9 MMOL/L (24-32); TOTAL PROTEIN 6.3 G/DL (6.4-8.2); eGFR 66 ML/MIN
[2019-04-16] MEDS: docusate sod 100mg capsule PO SCH ×2 (09:01→20:00)
[2019-04-16 09:04] LABS: BASOPHILS % (AUTO) 0.4 % (0-1); EOSINOPHILS # (AUTO) 0.1 X10'3 (0-0.9); EOSINOPHILS % (AUTO) 0.5 % (0-6); HEMATOCRIT 40.6 % (42.0-52.0); HEMOGLOBIN 13.4 g/dl (14.0-17.9); LYMPHOCYTES # (AUTO) 1.4 X10'3 (1.1-4.8); LYMPHOCYTES % (AUTO) 11.7 % (21-51); MEAN CORPUSCULAR VOLUME 84.8 FL (78-98); MEAN PLATELET VOLUME 7.8 FL (7.4-10.4); MONOCYTES # (AUTO) 1.3 X10'3 (0-0.9); MONOCYTES % (AUTO) 10.4 % (2-12); NEUTROPHILS # (AUTO) 9.5 X10'3 (1.8-7.7); PLATELET COUNT 221 X10'3 (140-440); RED BLOOD COUNT 4.78 X10'6 (4.70-6.10); RED CELL DISTRIBUTION WIDTH 14.3 % (11.5-14.5); WHITE BLOOD COUNT 12.3 X10'3 (4.5-11.0)
[2019-04-16] MEDS: insulin Lispro (HumaLOG) vial - multi-dose SQ SCH ×3 (09:08→19:29)
--- NOTE | 2019-04-16 10:00 | NUR ---
pt moves frequently with some assist with pillows. pt tachypneic with activity- sats to 89 then, otherwise wnl. dilaudid cadd effective. vss, uo adequate- remains pink. temp at 38. uses is and flutter valve when reminded. productive cough yellow sputum. c/o abd pain with sip of apple juice, but takes water well.
[2019-04-16] MEDS ORDERED: FENO134C PO (13:46)
--- NOTE | 2019-04-16 16:33 | NUR ---
DM consult, Hgb A1c is 7.8; Patient asleep with seen at bedside, left written DM education handout, RD contact information and referral to outpatient DM education class on Saturday. Addendum: 04/16/19 at [address] Amended: Links added.
--- NOTE | 2019-04-16 19:00 | NUR ---
Patient in room ICU 2039. I have received report from LALY Don and had the opportunity to ask questions and assume patient care. Patient is receiving Dilaudid.
[2019-04-16] MEDS: ondansetron/PF 4mg/2ml inj IV PRN (19:33)
[2019-04-16] MEDS: insulin glargine (Lantus) pen - multi-dose SQ SCH (21:16)
[2019-04-16] MEDS: albuterol 2.5 MG/3 ML nebule NEB PRN (21:19)
[2019-04-16] MEDS ORDERED: acetaminophen 325mg tablet PO PRN (21:40)
[2019-04-17] VITALS (20 sets, daily range): BP systolic 105–158; BP diastolic 53–96
[2019-04-17] MEDS ORDERED: dextrose 5%-1/2 normal saline 1,000 ML IV SCH (00:20)
[2019-04-17] MEDS: potassium CL 20mEq in D5-1/2NS 1,000 ML IV SCH ×3 (00:37→16:44)
[2019-04-17] MEDS: HYDROmorphone/NS 1 mg/ml CADD 50 ML IV SCH ×12 (01:00→23:00)
[2019-04-17 06:13] LABS: ALANINE AMINOTRANSFERASE 34 U/L (12-78); ALBUMIN 2.9 G/DL (3.4-5.0); ALBUMIN/GLOBULIN RATIO 0.7 (1.1-1.5); ALKALINE PHOSPHATASE 93 IU/L (46-116); ANION GAP 12 (8-16); ASPARTATE AMINO TRANSFERASE 13 U/L (10-37); BILIRUBIN,TOTAL 0.7 MG/DL (0.1-1.0); BLOOD UREA NITROGEN 16 MG/DL (7-18); BUN/CREATININE RATIO 9.1 (5.4-32.0); CALCIUM 8.4 MG/DL (8.5-10.1); CHLORIDE 99 MMOL/L (99-107); CREATININE 1.75 MG/DL (0.60-1.10); GLUCOSE 375 MG/DL (70-104); MAGNESIUM 1.6 MG/DL (1.5-2.4); SODIUM 140 MMOL/L (135-145); TOTAL PROTEIN 7.3 G/DL (6.4-8.2); eGFR 41 ML/MIN
--- NOTE | 2019-04-17 06:27 | NUR ---
Problems reprioritized. Patient report given, questions answered & plan of care reviewed with LALY Avila. Patient stable at shift change
--- NOTE | 2019-04-17 06:34 | NUR ---
Patient in room ICU 2039. I have received report from LALY Suarez and had the opportunity to ask questions and assume patient care.
[2019-04-17] MEDS: albuterol 2.5 MG/3 ML nebule NEB SCH ×4 (08:03→20:11)
[2019-04-17] MEDS: docusate sod 100mg capsule PO SCH ×2 (08:35→20:12)
[2019-04-17] MEDS: insulin Lispro (HumaLOG) vial - multi-dose SQ SCH ×4 (09:29→21:52)
[2019-04-17] MEDS: acetaminophen 325mg tablet PO PRN ×2 (16:29→22:51)
--- NOTE | 2019-04-17 18:27 | NUR ---
Problems reprioritized. Patient report given, questions answered & plan of care reviewed with PRUDENCE RN.
--- NOTE | 2019-04-17 18:41 | NUR ---
Patient in room KAT 355. I have received report from Madhavi RUFFIN and had the opportunity to ask questions and assume patient care.
[2019-04-17] MEDS ORDERED: pantoprazole 40mg Tablet.DR PO ONE (20:00)
[2019-04-17] MEDS: insulin glargine (Lantus) pen - multi-dose SQ SCH (21:49)
[2019-04-18] VITALS: BP 114/70
[2019-04-18] MEDS: potassium CL 20mEq in D5-1/2NS 1,000 ML IV SCH ×3 (00:30→22:37)
[2019-04-18] MEDS: HYDROmorphone/NS 1 mg/ml CADD 50 ML IV SCH ×6 (01:00→11:00)
[2019-04-18 06:10] LABS: BASOPHILS % (AUTO) 0.2 % (0-1); EOSINOPHILS # (AUTO) 0.3 X10'3 (0-0.9); EOSINOPHILS % (AUTO) 2.3 % (0-6); HEMATOCRIT 36.7 % (42.0-52.0); HEMOGLOBIN 12.2 g/dl (14.0-17.9); LYMPHOCYTES # (AUTO) 1.7 X10'3 (1.1-4.8); LYMPHOCYTES % (AUTO) 13.3 % (21-51); MEAN CORPUSCULAR HGB CONC 33.3 g/dL (33.0-36.5); MEAN CORPUSCULAR VOLUME 84.2 FL (78-98); MEAN PLATELET VOLUME 7.8 FL (7.4-10.4); MONOCYTES # (AUTO) 1.2 X10'3 (0-0.9); MONOCYTES % (AUTO) 9.7 % (2-12); NEUTROPHILS # (AUTO) 9.5 X10'3 (1.8-7.7); NEUTROPHILS % (AUTO) 74.5 % (42-75); PLATELET COUNT 221 X10'3 (140-440); RED BLOOD COUNT 4.36 X10'6 (4.70-6.10); RED CELL DISTRIBUTION WIDTH 14.4 % (11.5-14.5); WHITE BLOOD COUNT 12.8 X10'3 (4.5-11.0)
--- NOTE | 2019-04-18 06:17 | NUR ---
Patient in room KAT 355. I have received report from MICKI RUFFIN and had the opportunity to ask questions and assume patient care.
--- NOTE | 2019-04-18 07:35 | NUR ---
Patient in room KAT 355. I have received report from Brit RUFFIN and had the opportunity to ask questions and assume patient care.
[2019-04-18] MEDS: albuterol 2.5 MG/3 ML nebule NEB SCH ×4 (07:41→19:00)
[2019-04-18 07:48] VITALS: BP 139/77
[2019-04-18] MEDS: pantoprazole 40mg Tablet.DR PO SCH (08:09)
[2019-04-18] MEDS: docusate sod 100mg capsule PO SCH ×2 (08:10→19:36)
[2019-04-18] MEDS: insulin Lispro (HumaLOG) vial - multi-dose SQ SCH ×3 (08:18→18:52)
[2019-04-18 11:30] VITALS: BP 120/63
[2019-04-18] MEDS ORDERED: oxyCODONE/APAP 5-325mg tablet PO PRN (12:20)
[2019-04-18 18:00] VITALS: BP 154/88
--- NOTE | 2019-04-18 19:06 | NUR ---
Problems reprioritized. Patient report given, questions answered & plan of care reviewed with Kian RUFFIN.
[2019-04-18] MEDS: oxyCODONE/APAP 5-325mg tablet PO PRN (19:38)
[2019-04-18] MEDS: insulin glargine (Lantus) pen - multi-dose SQ SCH (21:16)
[2019-04-19] VITALS: BP 116/73
[2019-04-19] MEDS: ondansetron/PF 4mg/2ml inj IV PRN (04:28)
[2019-04-19] MEDS: acetaminophen 325mg tablet PO PRN ×2 (04:28→17:48)
--- NOTE | 2019-04-19 06:21 | NUR ---
Problems reprioritized. Patient report given, questions answered & plan of care reviewed with Lulu RUFFIN.
--- NOTE | 2019-04-19 06:30 | NUR ---
Patient in room KAT 355. I have received report from LALY BERRIOS and had the opportunity to ask questions and assume patient care.
[2019-04-19 07:00] VITALS: BP 139/78
[2019-04-19] MEDS: docusate sod 100mg capsule PO SCH ×2 (07:30→20:18)
[2019-04-19] MEDS: oxyCODONE/APAP 5-325mg tablet PO PRN ×3 (07:31→22:41)
[2019-04-19] MEDS: pantoprazole 40mg Tablet.DR PO SCH (07:31)
[2019-04-19] MEDS: albuterol 2.5 MG/3 ML nebule NEB SCH ×4 (07:45→20:03)
[2019-04-19] MEDS: insulin Lispro (HumaLOG) vial - multi-dose SQ SCH ×2 (08:54→18:26)
[2019-04-19 11:00] VITALS: BP 155/76
--- NOTE | 2019-04-19 14:42 | NUR ---
WAS UNABLE TO TREAT WITH INSULIN FOR THE AFTERNOON BLOOD SUGAR
[2019-04-19] MEDS ORDERED: dextrose 50%-water 50ml dispensing syringe IV PRN (18:00)
--- NOTE | 2019-04-19 18:21 | NUR ---
Problems reprioritized. Patient report given, questions answered & plan of care reviewed with LALY NEFF.
[2019-04-19] MEDS: mag hydrox/Alum hydrox/simeth 30ml oral suspension PO PRN (18:43)
[2019-04-19 20:00] VITALS: BP 142/73
[2019-04-19] MEDS: insulin glargine (Lantus) pen - multi-dose SQ SCH (21:05)
[2019-04-20] VITALS: BP 143/75
--- NOTE | 2019-04-20 06:12 | NUR ---
Problems reprioritized. Patient report given, questions answered & plan of care reviewed with ZACHARY. Addendum: 04/20/19 at 0613 by Taco Jackson RN Amended: Links added.
--- NOTE | 2019-04-20 06:34 | NUR ---
Problems reprioritized. Patient report given, questions answered & plan of care reviewed with []. Addendum: 04/20/19 at 0634 by Taco Jackson RN Amended: Links added.
[2019-04-20 07:04] VITALS: BP 131/73
[2019-04-20] MEDS: albuterol 2.5 MG/3 ML nebule NEB SCH ×4 (07:04→19:00)
[2019-04-20] MEDS: docusate sod 100mg capsule PO SCH ×2 (07:18→19:31)
[2019-04-20] MEDS: pantoprazole 40mg Tablet.DR PO SCH (07:18)
[2019-04-20] MEDS: insulin Lispro (HumaLOG) vial - multi-dose SQ SCH ×3 (08:40→19:01)
[2019-04-20] MEDS: oxyCODONE/APAP 5-325mg tablet PO PRN ×2 (11:07→18:57)
[2019-04-20 11:42] VITALS: BP 165/74
--- NOTE | 2019-04-20 16:36 | NUR ---
Initial: Pt s/p laparoscopic sigmoid colectomy. Pt currently eating well on carb controlled diet, PO intake 100% avg meals. RD hr internship visited pt at bedside and provided written low fiber diet education handout with verbal review and RD contact information. RD hr internship reviewed list of low fiber foods with pt. LBM 04/20. Will continue to monitor. Recommendations: 1. continue carb controlled diet 2. bowel care as needed 3. weight per rx Addendum: 04/20/19 at [address] Amended: Links added. Addendum: 04/20/19 at [address] RD agree with note
--- NOTE | 2019-04-20 18:21 | NUR ---
Problems reprioritized. Patient report given, questions answered & plan of care reviewed with Emmanuel RUFFIN.
[2019-04-20 18:40] VITALS: BP 150/55
[2019-04-20] MEDS: mag hydrox/Alum hydrox/simeth 30ml oral suspension PO PRN (18:57)
[2019-04-20] MEDS: insulin glargine (Lantus) pen - multi-dose SQ SCH (21:20)
[2019-04-21 00:26] VITALS: BP 154/88
[2019-04-21] MEDS: acetaminophen 325mg tablet PO PRN (05:07)
[2019-04-21] MEDS: albuterol 2.5 MG/3 ML nebule NEB SCH ×2 (05:09→11:32)
--- NOTE | 2019-04-21 06:17 | NUR ---
Problems reprioritized. Patient report given, questions answered & plan of care reviewed with ZACHARY. Addendum: 04/21/19 at 0618 by Taco Jackson RN Amended: Links added.
--- NOTE | 2019-04-21 06:19 | NUR ---
Problems reprioritized. Patient report given, questions answered & plan of care reviewed with ZACHARY. Addendum: 04/21/19 at 0619 by Taco Jackson RN Amended: Links added.
--- NOTE | 2019-04-21 06:39 | NUR ---
Patient in room KAT 355. I have received report from Emmanuel RUFFIN and had the opportunity to ask questions and assume patient care.
[2019-04-21] MEDS: docusate sod 100mg capsule PO SCH (07:39)
[2019-04-21] MEDS: pantoprazole 40mg Tablet.DR PO SCH (07:39)
[2019-04-21] MEDS: albuterol 2.5 MG/3 ML nebule NEB PRN (08:20)
[2019-04-21] MEDS: oxyCODONE/APAP 5-325mg tablet PO PRN (08:37)
[2019-04-21] MEDS: insulin Lispro (HumaLOG) vial - multi-dose SQ SCH (08:43)
[2019-04-21 11:00] VITALS: BP 100/61
[2019-04-21] MEDS ORDERED: OXYC-150 PO (11:58)
--- NOTE | 2019-04-21 12:17 | NUR ---
Patient discharged on nursing end. All discharge education completed with patient. Next doses for home medication completed with patient. Patient states he won't take his plavix since his MD has stopped this medication. No new medications and no medications in the pharmacy. Patient will follow up with his MD and call for appointment with Dr. Glover. Patient doesn't want to come all the way back to see Dr. Glover, advised patient to call the office and see if Dr. Glover wants to see him or not. Patient ready for WC and discharge to [facility]. Sister her to provide him a ride home.
== END 2019-04-21 12:25 | disposition home or self-care (01) | DRG 231 ==
LOC: PAS IN 08:36 → EDSTATUS 10:15 → ICU 2S 17:00 → SUR 3N 04-17 17:28
PROVIDERS: ADMIT Surgery; ATTEND Surgery
PROC: BT141ZZ Fluoroscopy of Kidneys, Ureters and Bladder using Low Osmolar Contrast (ICD-10-PCS; 2019-04-15)
PROC: 0TJB8ZZ Inspection of Bladder, Via Natural or Artificial Opening Endoscopic (ICD-10-PCS; principal; 2019-04-15 12:13)
PROC: 0DBN4ZZ Excision of Sigmoid Colon, Percutaneous Endoscopic Approach (ICD-10-PCS; 2019-04-15 12:13)
DX: C18.7 Malignant neoplasm of sigmoid colon (principal); E11.65 Type 2 diabetes mellitus with hyperglycemia; E66.01 Morbid (severe) obesity due to excess calories; G47.30 Sleep apnea, unspecified; K63.5 Polyp of colon; N13.30 Unspecified hydronephrosis; M19.90 Unspecified osteoarthritis, unspecified site; J44.9 Chronic obstructive pulmonary disease, unspecified; I10 Essential (primary) hypertension; Z68.42 Body mass index [BMI] 45.0-49.9, adult; Z85.47 Personal history of malignant neoplasm of testis; Z87.891 Personal history of nicotine dependence; Z80.3 Family history of malignant neoplasm of breast; Z95.5 Presence of coronary angioplasty implant and graft
CPT/HCPCS: 36415; 71046; 76000; 80053; 81001; 82948; 83036; 83735; 84100; 85025; 85610; 85730; 86885; 86900; 86901; 86920; 87081; 93005; 94640; 94668; 94760; 97116; 97161; 97530; A4215; A4355; A4618; A7000; C1758; C1769; G0378; J0131; J0690; J0694; J1170; J1815; J2250; J2405; J2704; J2710; J3010; J3480; J3490; J7120; Q9967

== ENCOUNTER 2019-12-01 19:11 | Inpatient (IN) | payer MEDICAID ==
[~2019-12-01] VITALS: Ht 167.6 cm; Wt 133.0 kg
[~2019-12-01 19:11] MED LIST changes: +FENO134C PO; -FENO145T26 PO; +OXYC-150 PO; -albuterol 2.5 MG/3 ML nebule NEB ONE; -ceFOXitin 2 GM ADDvantage bag 100 ML IV ONE; -famotidine 10mg tablet PO ONE; -ringers solution, lacted 1,000 ML IV SCH
--- NOTE | 2019-12-01 19:38 | NUR ---
DR. HEAD AT BEDSIDE . PT REPROTS HIS PAIN TO HIS LEFT BACK AND LEFT ABDOMEN STARTED YESTERDAY.
--- NOTE | 2019-12-01 19:42 | NUR ---
PT REPORTS HE WAS CLEAN OF DRUG USE FO 4 YRS AND 10 DAYS AGO RESTARTED AND USED METH (IV AND SMOKING) INTERMITTENTLY. LAST USE 4 DAYS AGO.
[2019-12-01] MEDS ORDERED: ondansetron/PF 4mg/2ml inj IV ONE (20:05)
[2019-12-01] MEDS ORDERED: normal saline 1000ML IV soln IVB ONE (20:05)
--- NOTE | 2019-12-01 20:52 | NUR ---
DR RAPHAEL AT BEDSIDE FOR ADMISSION. PT PULLED OUT HIS IV ACCIDENTLY WHEN HE GOT UP TO USE URINAL. PT IS DIFFICULT IV PLACEMENT. 2 ATTEMPTS WITH ULTRASOUND UNSUCCESSFUL.
[2019-12-01] MEDS: morphine 4 MG/ML inj SYRINge IV PRN ×2 (20:56→21:46)
[2019-12-01] MEDS ORDERED: acetaminophen 325mg tablet PO PRN (21:15)
[2019-12-01] MEDS ORDERED: potassium Cl 20 mEq SR tablet PO PRN ×2 (21:15)
[2019-12-01] MEDS ORDERED: mag hydrox/Alum hydrox/simeth 30ml oral suspension PO PRN (21:15)
[2019-12-01] MEDS ORDERED: potassium CL 10mEq/100ml bag 100 ML IV PRN ×2 (21:15)
[2019-12-01] MEDS ORDERED: morphine 2 MG/ML inj. syringe IV PRN ×2 (21:15)
[2019-12-01] MEDS ORDERED: magnesium hydroxide 30ml (MOM) UD suspension PO PRN (21:15)
[2019-12-01] MEDS ORDERED: ondansetron/PF 4mg/2ml inj IV PRN (21:15)
[2019-12-01] MEDS ORDERED: nitroGLYCERIN 0.4mg SUBLingual tab SL PRN (21:20)
[2019-12-01] MEDS ORDERED: albuterol 2.5 MG/3 ML nebule NEB PRN ×2 (21:20→21:37)
[2019-12-01] MEDS ORDERED: glucagon, human recombinant 1mg kit SUBCUT PRN (21:30)
[2019-12-01] MEDS ORDERED: dextrose 50%-water 50ml dispensing syringe IV PRN ×2 (21:30)
[2019-12-01] MEDS ORDERED: MESSAGE TO PHARMACY PO ONE (21:30)
[2019-12-01] MEDS ORDERED: dextrose ORAL solution 15 GM/59 ML bottle PO PRN ×2 (21:30)
[2019-12-01] MEDS: normal saline 1000ml 1,000 ML IV SCH (21:47)
[2019-12-01 22:09] LABS: BASOPHILS % (AUTO) 0.2 % (0-1); HEMATOCRIT 43.4 % (42.0-52.0); HEMOGLOBIN 14.2 g/dl (14.0-17.9); LYMPHOCYTES # (AUTO) 0.8 X10'3 (1.1-4.8); MEAN PLATELET VOLUME 7.4 FL (7.4-10.4); NEUTROPHILS # (AUTO) 8.8 X10'3 (1.8-7.7); WHITE BLOOD COUNT 11.3 X10'3 (4.5-11.0)
[2019-12-01 22:11] LABS: EOSINOPHILS % (AUTO) 0.2 % (0-6); LYMPHOCYTES % (AUTO) 6.7 % (21-51); MEAN CORPUSCULAR HEMOGLOBIN 27.6 PG (27.0-31.0); MEAN CORPUSCULAR HGB CONC 32.7 g/dL (33.0-36.5); MEAN CORPUSCULAR VOLUME 84.4 FL (78-98); MONOCYTES # (AUTO) 1.7 X10'3 (0-0.9); MONOCYTES % (AUTO) 15.2 % (2-12); NEUTROPHILS % (AUTO) 77.7 % (42-75); PLATELET COUNT 214 X10'3 (140-440); RED BLOOD COUNT 5.14 X10'6 (4.70-6.10); RED CELL DISTRIBUTION WIDTH 15.7 % (11.5-14.5)
[2019-12-01 22:18] LABS: ALANINE AMINOTRANSFERASE 16 U/L (12-78); ALBUMIN 2.5 G/DL (3.4-5.0); ALBUMIN/GLOBULIN RATIO 0.6 (1.1-1.5); ALKALINE PHOSPHATASE 101 IU/L (46-116); ANION GAP 9 (8-16); ASPARTATE AMINO TRANSFERASE 5 U/L (10-37); BILIRUBIN,TOTAL 0.9 MG/DL (0.1-1.0); BLOOD UREA NITROGEN 17 MG/DL (7-18); BUN/CREATININE RATIO 11.8 (5.4-32.0); CALCIUM 8.4 MG/DL (8.5-10.1); CHLORIDE 100 MMOL/L (99-107); CREATININE 1.44 MG/DL (0.60-1.10); GLUCOSE 251 MG/DL (70-104); LIPASE < 50 U/L (73-393); POTASSIUM 4.5 MMOL/L (3.5-5.1); SODIUM 133 MMOL/L (135-145); TOTAL CARBON DIOXIDE 24.5 MMOL/L (24-32); eGFR 51 ML/MIN
--- NOTE | 2019-12-01 22:21 | NUR ---
PER SUZY JUAN TO PLACE FOOT IV. 22G IN R FOOT. GIVEN MORPINE AND FLUIDS INFUSING
[2019-12-01 22:29] LABS: HEMOGLOBIN A1C 8.8 % (4.5-6.2)
[2019-12-01 22:44] LABS: CLARITY,URINE CLOUDY (Clear); COLOR,URINE YELLOW (Yellow); GLUCOSE, URINE NEGATIVE (Neg); KETONES,URINE NEGATIVE (Neg); LEUKOCYTE ESTERASE ,URINE SMALL (Neg); NITRITES, URINE NEGATIVE (Neg); OCCULT BLOOD,URINE LARGE (Neg); PH,URINE 5.5 (4.8-8.0); PROTEIN,URINE >=300 mg/dl (Neg); UA COLLECTION TYPE VOIDED
[2019-12-01 22:59] LABS: WBC,URINE 50-100 /HPF (0-4)
[2019-12-01 23:00] LABS: BACTERIA,URINE 2+ /HPF (Neg); SQUAMOUS EPITHELIAL CELL,UR FEW /LPF (FEW)
--- NOTE | 2019-12-02 00:23 | NUR ---
Patient placed on Bipap per MD orders. Patient does not know his home settings nor can he obtain his machine from home (MILLIE).Settings at 16/8 and 30% FiO2. Settings will be adjusted as required. Patient encouraged to obtain his machine from home and to also note his settings on his meds sheet for future reference. Addendum: 12/02/19 at 0028 by Sheng Lee RT Amended: Links added.
[2019-12-02 00:49] VITALS: BP 148/58
[2019-12-02] MEDS ORDERED: ipratropium 0.5 MG/2.5ML nebule NEB SCH (03:00)
[2019-12-02] MEDS: HYDROcodone/acetaminophen 10/325mg tab PO PRN ×3 (03:41→19:24)
[2019-12-02 06:08] LABS: ALANINE AMINOTRANSFERASE 83 U/L (12-78); ALBUMIN 2.1 G/DL (3.4-5.0); ALBUMIN/GLOBULIN RATIO 0.5 (1.1-1.5); ALKALINE PHOSPHATASE 216 IU/L (46-116); ANION GAP 9 (8-16); ASPARTATE AMINO TRANSFERASE 72 U/L (10-37); BLOOD UREA NITROGEN 15 MG/DL (7-18); BUN/CREATININE RATIO 11.1 (5.4-32.0); CALCIUM 8.1 MG/DL (8.5-10.1); CHLORIDE 100 MMOL/L (99-107); CREATININE 1.35 MG/DL (0.60-1.10); GLUCOSE 254 MG/DL (70-104); POTASSIUM 4.3 MMOL/L (3.5-5.1); SODIUM 134 MMOL/L (135-145); TOTAL CARBON DIOXIDE 24.7 MMOL/L (24-32); TOTAL PROTEIN 6.5 G/DL (6.4-8.2); eGFR 55 ML/MIN
[2019-12-02 06:13] LABS: BASOPHILS % (AUTO) 0.1 % (0-1); HEMOGLOBIN 13.1 g/dl (14.0-17.9); MONOCYTES # (AUTO) 1.6 X10'3 (0-0.9); NEUTROPHILS # (AUTO) 6.9 X10'3 (1.8-7.7)
[2019-12-02 06:16] LABS: EOSINOPHILS % (AUTO) 0.2 % (0-6); HEMATOCRIT 39.1 % (42.0-52.0); LYMPHOCYTES # (AUTO) 0.6 X10'3 (1.1-4.8); LYMPHOCYTES % (AUTO) 6.7 % (21-51); MEAN CORPUSCULAR HEMOGLOBIN 28.1 PG (27.0-31.0); MEAN CORPUSCULAR HGB CONC 33.4 g/dL (33.0-36.5); MEAN CORPUSCULAR VOLUME 84.1 FL (78-98); MEAN PLATELET VOLUME 8.1 FL (7.4-10.4); MONOCYTES % (AUTO) 17.6 % (2-12); NEUTROPHILS % (AUTO) 75.4 % (42-75); PLATELET COUNT 208 X10'3 (140-440); RED BLOOD COUNT 4.64 X10'6 (4.70-6.10); RED CELL DISTRIBUTION WIDTH 15.4 % (11.5-14.5); WHITE BLOOD COUNT 9.1 X10'3 (4.5-11.0)
[2019-12-02 07:00] VITALS: BP 129/65
--- NOTE | 2019-12-02 07:10 | NUR ---
Patient in room KAT 355. I have received report from Helen RUFFIN and had the opportunity to ask questions and assume patient care.
[2019-12-02] MEDS: normal saline 1000ml 1,000 ML IV SCH ×3 (07:55→20:05)
[2019-12-02] MEDS: levoFLOXACIN-Levaquin 500mg/D5 100 ML IV SCH (07:56)
[2019-12-02] MEDS: fenofibrate 145mg tablet PO SCH (07:57)
[2019-12-02] MEDS: loratadine 10mg tablet PO SCH (07:57)
[2019-12-02] MEDS: gabapentin 300mg capsule PO SCH ×3 (07:57→20:05)
[2019-12-02] MEDS: aspirin 81mg tab.chew PO SCH (07:57)
[2019-12-02] MEDS: pantoprazole 40mg Tablet.DR PO SCH (07:58)
[2019-12-02] MEDS: heparin, porcine 5000 units/ml vial SQ SCH ×2 (07:59→19:24)
[2019-12-02] MEDS ORDERED: atorvastatin 20mg tablet PO SCH (08:00)
[2019-12-02] MEDS: K and/or MAG REPLACEMENT MC SCH ×2 (08:00→19:11)
[2019-12-02] MEDS: lisinopril 10 MG tablet PO SCH (08:00)
[2019-12-02 09:26] LABS: TOTAL CELLS COUNTED 100
[2019-12-02 09:27] LABS: PLATELET ESTIMATE NORMAL; TOXIC GRANULATION 2+
[2019-12-02] MEDS: insulin Lispro (HumaLOG) vial - multi-dose SQ SCH ×3 (10:30→19:56)
[2019-12-02 11:00] VITALS: BP 120/83
[2019-12-02] MEDS ORDERED: MONT10TA26 PO (11:46)
[2019-12-02] MEDS: ipratropium/albuterol 3ml nebule NEB PRN (14:01)
--- NOTE | 2019-12-02 15:45 | NUR ---
Pt with A1c 8.8%. Attempted visit with pt at bedside however pt sleeping and did not wake with verbal cues. Written DM education and RD contact information left at patient's bedside. Pt admit with acute pyelonephritis. Sepsis score 0 per physical assessment. Will continue to follow. Addendum: 12/02/19 at [address] Amended: Links added.
[2019-12-02] MEDS: lactobacillus rhamnosus 10,000 MMU CELLS/CAPSULE PO SCH (19:24)
[2019-12-02 20:00] VITALS: BP 148/80
[2019-12-02] MEDS: insulin glargine (Lantus) pen - multi-dose SQ SCH (22:40)
[2019-12-03] VITALS (18 sets, daily range): BP systolic 92–127; BP diastolic 49–82
[2019-12-03] MEDS: HYDROcodone/acetaminophen 10/325mg tab PO PRN ×3 (03:47→21:08)
[2019-12-03] MEDS: normal saline 1000ml 1,000 ML IV SCH ×2 (05:15→19:40)
[2019-12-03 05:45] LABS: ALANINE AMINOTRANSFERASE 46 U/L (12-78); ALBUMIN/GLOBULIN RATIO 0.5 (1.1-1.5); ALKALINE PHOSPHATASE 169 IU/L (46-116); ANION GAP 7 (8-16); ASPARTATE AMINO TRANSFERASE 19 U/L (10-37); BILIRUBIN,TOTAL 0.5 MG/DL (0.1-1.0); BLOOD UREA NITROGEN 17 MG/DL (7-18); BUN/CREATININE RATIO 12.6 (5.4-32.0); CALCIUM 8.1 MG/DL (8.5-10.1); CHLORIDE 101 MMOL/L (99-107); CREATININE 1.35 MG/DL (0.60-1.10); GLUCOSE 312 MG/DL (70-104); POTASSIUM 4.6 MMOL/L (3.5-5.1); SODIUM 132 MMOL/L (135-145); TOTAL CARBON DIOXIDE 23.8 MMOL/L (24-32); TOTAL PROTEIN 6.2 G/DL (6.4-8.2); eGFR 55 ML/MIN
[2019-12-03 06:07] LABS: EOSINOPHILS % (AUTO) 0.3 % (0-6); LYMPHOCYTES # (AUTO) 0.8 X10'3 (1.1-4.8); MEAN CORPUSCULAR HEMOGLOBIN 27.8 PG (27.0-31.0); MONOCYTES # (AUTO) 1.8 X10'3 (0-0.9); MONOCYTES % (AUTO) 22.1 % (2-12)
--- NOTE | 2019-12-03 06:12 | NUR ---
Patient in room KTA 355. I have received report from LALY Cervantes and had the opportunity to ask questions and assume patient care.
[2019-12-03 06:19] LABS: BASOPHILS % (AUTO) 0.1 % (0-1); HEMOGLOBIN 11.9 g/dl (14.0-17.9); LYMPHOCYTES % (AUTO) 10.3 % (21-51); MEAN CORPUSCULAR HGB CONC 32.3 g/dL (33.0-36.5); MEAN PLATELET VOLUME 7.9 FL (7.4-10.4); NEUTROPHILS # (AUTO) 5.5 X10'3 (1.8-7.7); NEUTROPHILS % (AUTO) 67.2 % (42-75); PLATELET COUNT 218 X10'3 (140-440); RED CELL DISTRIBUTION WIDTH 15.3 % (11.5-14.5); WHITE BLOOD COUNT 8.2 X10'3 (4.5-11.0)
--- NOTE | 2019-12-03 06:33 | NUR ---
Problems reprioritized. Patient report given, questions answered & plan of care reviewed with Celena RUFFIN.
[2019-12-03 07:49] LABS: PLATELET ESTIMATE NORMAL; TOTAL CELLS COUNTED 100
[2019-12-03] MEDS: K and/or MAG REPLACEMENT MC SCH ×2 (08:00→20:00)
[2019-12-03] MEDS: heparin, porcine 5000 units/ml vial SQ SCH ×2 (08:00→21:07)
[2019-12-03] MEDS: pantoprazole 40mg Tablet.DR PO SCH (08:51)
[2019-12-03] MEDS: gabapentin 300mg capsule PO SCH ×3 (08:51→21:07)
[2019-12-03] MEDS: levoFLOXACIN-Levaquin 500mg/D5 100 ML IV SCH (08:51)
[2019-12-03] MEDS: fenofibrate 145mg tablet PO SCH (08:51)
[2019-12-03] MEDS: lisinopril 10 MG tablet PO SCH (08:51)
[2019-12-03] MEDS: lactobacillus rhamnosus 10,000 MMU CELLS/CAPSULE PO SCH ×2 (08:51→21:06)
[2019-12-03] MEDS: aspirin 81mg tab.chew PO SCH (08:51)
[2019-12-03] MEDS: loratadine 10mg tablet PO SCH (08:51)
[2019-12-03] MEDS: insulin Lispro (HumaLOG) vial - multi-dose SQ SCH ×3 (08:57→21:18)
[2019-12-03] MEDS ORDERED: ibuprofen tablet 400 MG TABLET PO PRN (11:35)
--- NOTE | 2019-12-03 15:36 | NUR ---
report called to LALY Pulido in recovery room
[2019-12-03] MEDS ORDERED: sevoflurane 250ml liquid IH ONE (15:54)
[2019-12-03] MEDS ORDERED: fentaNYL/PF 50MCG/1 ML 2ML syringe ONE (15:58)
[2019-12-03] MEDS ORDERED: midazolam 2 mg/2 ml injection ONE (15:59)
[2019-12-03] MEDS ORDERED: propofol inj 20 ML IV ONE (15:59)
[2019-12-03] MEDS ORDERED: levoFLOXACIN-Levaquin 500mg/D5 100 ML IV ONE (15:59)
[2019-12-03] MEDS ORDERED: succinylcholine 20mg/ml inj IV ONE (16:17)
[2019-12-03] MEDS ORDERED: iohexol 300 MG/1 ML 50ml polymer ONE (16:22)
[2019-12-03] MEDS ORDERED: ringers solution, lacted 1,000 ML IV SCH (16:24)
[2019-12-03] MEDS ORDERED: ondansetron/PF 4mg/2ml inj IV PRN (16:25)
[2019-12-03] MEDS ORDERED: meperidine/PF 25mg/ml syringe IV PRN ×2 (16:25)
[2019-12-03] MEDS ORDERED: morphine 4 MG/ML inj SYRINge IV PRN (16:25)
[2019-12-03] MEDS ORDERED: proCHLORperazine 10 MG/2 ml inj IV PRN (16:25)
[2019-12-03] MEDS ORDERED: morphine 2 MG/ML inj. syringe IV PRN (16:25)
--- NOTE | 2019-12-03 17:20 | NUR ---
Received from OR via BED , accompanied by Anesthesiologist DR ALSTON and report given by Anesthesiolgist. PATIENT WAKING UP, DENIES, V/S WNL, NEUROVASCULAR CHECKS INTACT, 20G PIV RLE, SCD ON, F/C DRAINIING CLEAR YELLOW URINE
[2019-12-03] MEDS: meperidine/PF 25mg/ml syringe IV PRN ×2 (17:40→17:45)
--- NOTE | 2019-12-03 17:49 | NUR ---
Report received from business account leader.
--- NOTE | 2019-12-03 18:00 | NUR ---
PATIENT A&OX4, DENIES, V/S WNL, NEUROVASCULAR CHECKS INTACT, 20G PIV RLE, SCD ON, F/C DRAINIING LIGHT BROWN SEDIMENT LOOKING LIKE CHOCOLATE MILK COLOR. PATIENT TAKEN TO 355B WITH ALL BELONGINGS AND HOOKED UP TO MONITORS IN ROOM AND REPORT GIVEN TO RN WHO HAS TAKEN OVER PATIENT CARE. BED LOW, CALL LIGHT IN REACH,
--- NOTE | 2019-12-03 18:30 | NUR ---
Problems reprioritized. Patient report given, questions answered & plan of care reviewed with Pat Mixon RN.
--- NOTE | 2019-12-03 18:47 | NUR ---
Patient in room KAT 355. I have received report from LALY Dallas and had the opportunity to ask questions and assume patient care. Addendum: 12/03/19 at 1847 by Afua Singh RN Amended: Links added.
[2019-12-03] MEDS: atorvastatin 20mg tablet PO SCH (21:07)
[2019-12-03] MEDS: insulin glargine (Lantus) pen - multi-dose SQ SCH (21:16)
[2019-12-04] VITALS: BP 109/58
[2019-12-04 04:00] VITALS: BP 106/70
[2019-12-04] MEDS: normal saline 1000ml 1,000 ML IV SCH ×2 (04:47→16:35)
[2019-12-04 05:27] LABS: ALANINE AMINOTRANSFERASE 35 U/L (12-78); ALBUMIN 1.7 G/DL (3.4-5.0); ALBUMIN/GLOBULIN RATIO 0.4 (1.1-1.5); ALKALINE PHOSPHATASE 134 IU/L (46-116); ANION GAP 8 (8-16); ASPARTATE AMINO TRANSFERASE 17 U/L (10-37); BILIRUBIN,TOTAL 0.3 MG/DL (0.1-1.0); BLOOD UREA NITROGEN 25 MG/DL (7-18); BUN/CREATININE RATIO 15.6 (5.4-32.0); CALCIUM 7.9 MG/DL (8.5-10.1); CHLORIDE 103 MMOL/L (99-107); GLUCOSE 186 MG/DL (70-104); POTASSIUM 4.3 MMOL/L (3.5-5.1); SODIUM 136 MMOL/L (135-145); TOTAL CARBON DIOXIDE 25.4 MMOL/L (24-32); TOTAL PROTEIN 6.1 G/DL (6.4-8.2); eGFR 45 ML/MIN
[2019-12-04 05:32] LABS: BASOPHILS % (AUTO) 0.1 % (0-1); EOSINOPHILS % (AUTO) 0.5 % (0-6); HEMATOCRIT 35.1 % (42.0-52.0); HEMOGLOBIN 11.2 g/dl (14.0-17.9); LYMPHOCYTES # (AUTO) 1.2 X10'3 (1.1-4.8); MEAN CORPUSCULAR HEMOGLOBIN 27.3 PG (27.0-31.0); MEAN CORPUSCULAR HGB CONC 31.9 g/dL (33.0-36.5); MEAN CORPUSCULAR VOLUME 85.3 FL (78-98); MEAN PLATELET VOLUME 7.6 FL (7.4-10.4); MONOCYTES # (AUTO) 2.1 X10'3 (0-0.9); MONOCYTES % (AUTO) 24.4 % (2-12); NEUTROPHILS # (AUTO) 5.2 X10'3 (1.8-7.7); PLATELET COUNT 245 X10'3 (140-440); RED BLOOD COUNT 4.11 X10'6 (4.70-6.10); RED CELL DISTRIBUTION WIDTH 15.3 % (11.5-14.5); WHITE BLOOD COUNT 8.5 X10'3 (4.5-11.0)
--- NOTE | 2019-12-04 06:29 | NUR ---
Problems reprioritized. Patient report given, questions answered & plan of care reviewed with LALY Wright.
[2019-12-04] MEDS: fenofibrate 145mg tablet PO SCH (07:14)
[2019-12-04] MEDS: loratadine 10mg tablet PO SCH (07:14)
[2019-12-04] MEDS: pantoprazole 40mg Tablet.DR PO SCH (07:15)
[2019-12-04] MEDS: gabapentin 300mg capsule PO SCH ×3 (07:15→20:20)
[2019-12-04] MEDS: lactobacillus rhamnosus 10,000 MMU CELLS/CAPSULE PO SCH ×2 (07:15→20:19)
[2019-12-04] MEDS: aspirin 81mg tab.chew PO SCH (07:15)
[2019-12-04] MEDS: lisinopril 10 MG tablet PO SCH (07:16)
[2019-12-04] MEDS: heparin, porcine 5000 units/ml vial SQ SCH ×2 (07:16→20:19)
--- NOTE | 2019-12-04 07:21 | NUR ---
Patient in room KAT 355. I have received report from LALY Stewart and had the opportunity to ask questions and assume patient care.
[2019-12-04 08:00] VITALS: BP 101/55
[2019-12-04] MEDS: K and/or MAG REPLACEMENT MC SCH ×2 (08:00→20:00)
[2019-12-04 08:07] LABS: TOTAL CELLS COUNTED 100
[2019-12-04 08:08] LABS: PLATELET ESTIMATE NORMAL
[2019-12-04] MEDS: levoFLOXACIN-Levaquin 500mg/D5 100 ML IV SCH (08:57)
[2019-12-04] MEDS: insulin Lispro (HumaLOG) vial - multi-dose SQ SCH ×4 (09:02→21:16)
[2019-12-04 11:00] VITALS: BP 124/70
[2019-12-04] MEDS: HYDROcodone/acetaminophen 10/325mg tab PO PRN ×2 (15:58→20:19)
[2019-12-04 18:00] VITALS: BP 113/80
--- NOTE | 2019-12-04 18:37 | NUR ---
Patient in room KAT 355. I have received report from LALY Wright and had the opportunity to ask questions and assume patient care. Addendum: 12/04/19 at 1837 by Afua Singh RN Amended: Links added.
--- NOTE | 2019-12-04 19:13 | NUR ---
Problems reprioritized. Patient report given, questions answered & plan of care reviewed with LALY Stewart. Pt SOB at rest Bipap on most of the shift. stated it was difficult to breath while lying down. medicated PRN for pain x1. IS encouraged.
[2019-12-04] MEDS: ipratropium/albuterol 3ml nebule NEB PRN (19:56)
[2019-12-04] MEDS: atorvastatin 20mg tablet PO SCH (20:19)
[2019-12-04] MEDS: insulin glargine (Lantus) pen - multi-dose SQ SCH (21:16)
[2019-12-05] VITALS: BP 123/72
[2019-12-05] MEDS: normal saline 1000ml 1,000 ML IV SCH ×3 (01:57→11:43)
[2019-12-05 05:15] LABS: ALANINE AMINOTRANSFERASE 38 U/L (12-78); ALBUMIN 1.7 G/DL (3.4-5.0); ALBUMIN/GLOBULIN RATIO 0.4 (1.1-1.5); ALKALINE PHOSPHATASE 126 IU/L (46-116); ANION GAP 4 (8-16); ASPARTATE AMINO TRANSFERASE 27 U/L (10-37); BILIRUBIN,TOTAL 0.2 MG/DL (0.1-1.0); BLOOD UREA NITROGEN 23 MG/DL (7-18); BUN/CREATININE RATIO 16.1 (5.4-32.0); CALCIUM 7.8 MG/DL (8.5-10.1); CHLORIDE 104 MMOL/L (99-107); CREATININE 1.43 MG/DL (0.60-1.10); GLUCOSE 211 MG/DL (70-104); POTASSIUM 4.4 MMOL/L (3.5-5.1); SODIUM 137 MMOL/L (135-145); TOTAL CARBON DIOXIDE 28.7 MMOL/L (24-32); TOTAL PROTEIN 5.9 G/DL (6.4-8.2); eGFR 52 ML/MIN
[2019-12-05 05:51] LABS: BASOPHILS % (AUTO) 0.1 % (0-1); EOSINOPHILS # (AUTO) 0.1 X10'3 (0-0.9); EOSINOPHILS % (AUTO) 0.5 % (0-6); HEMATOCRIT 32.3 % (42.0-52.0); HEMOGLOBIN 10.4 g/dl (14.0-17.9); LYMPHOCYTES # (AUTO) 1.7 X10'3 (1.1-4.8); MEAN CORPUSCULAR HEMOGLOBIN 27.4 PG (27.0-31.0); MEAN CORPUSCULAR HGB CONC 32.2 g/dL (33.0-36.5); MEAN CORPUSCULAR VOLUME 85.1 FL (78-98); MEAN PLATELET VOLUME 7.4 FL (7.4-10.4); MONOCYTES # (AUTO) 2.1 X10'3 (0-0.9); MONOCYTES % (AUTO) 19.7 % (2-12); NEUTROPHILS # (AUTO) 6.7 X10'3 (1.8-7.7); NEUTROPHILS % (AUTO) 63.7 % (42-75); PLATELET COUNT 268 X10'3 (140-440); RED BLOOD COUNT 3.79 X10'6 (4.70-6.10); RED CELL DISTRIBUTION WIDTH 15.8 % (11.5-14.5); WHITE BLOOD COUNT 10.5 X10'3 (4.5-11.0)
[2019-12-05 06:30] VITALS: BP 113/49
--- NOTE | 2019-12-05 06:40 | NUR ---
Problems reprioritized. Patient report given, questions answered & plan of care reviewed with LALY Dallas.
--- NOTE | 2019-12-05 06:42 | NUR ---
Patient in room KAT 355. I have received report from Pat Mixon RN and had the opportunity to ask questions and assume patient care.
[2019-12-05] MEDS: lactobacillus rhamnosus 10,000 MMU CELLS/CAPSULE PO SCH (07:35)
[2019-12-05] MEDS: loratadine 10mg tablet PO SCH (07:35)
[2019-12-05] MEDS: pantoprazole 40mg Tablet.DR PO SCH (07:35)
[2019-12-05] MEDS: fenofibrate 145mg tablet PO SCH (07:35)
[2019-12-05] MEDS: aspirin 81mg tab.chew PO SCH (07:35)
[2019-12-05] MEDS: gabapentin 300mg capsule PO SCH ×2 (07:35→12:56)
[2019-12-05] MEDS: lisinopril 10 MG tablet PO SCH (07:36)
[2019-12-05] MEDS: heparin, porcine 5000 units/ml vial SQ SCH (07:37)
[2019-12-05] MEDS: insulin Lispro (HumaLOG) vial - multi-dose SQ SCH ×2 (07:51→13:03)
[2019-12-05] MEDS: K and/or MAG REPLACEMENT MC SCH (08:00)
[2019-12-05 11:00] VITALS: BP 122/72
[2019-12-05] MEDS ORDERED: levoFLOXACIN 500mg tablet PO SCH (11:00)
[2019-12-05] MEDS ORDERED: LEVO500T89 PO (14:28)
--- NOTE | 2019-12-05 16:27 | NUR ---
Pt discharged to home at 1610, with all belongings, in private vehicle. Discharge instructions and medications reviewed. Oxygen delivered by [facility] for transportation. New prescription e-scripted to [facility] in [place]. Pt instructed to begin taking medications tomorrow at 1100. Pt instructed to follow up with Dr Thorne in 3 weeks, office number provided. IV DC'd, cannula intact. Pt also instructed to notify Dr Thorne office and return to ED if symptoms return or he is unable to void. [facility]
== END 2019-12-05 16:10 | disposition home or self-care (01) | DRG 720 ==
LOC: ER 19:11 → ED HOLD 21:12 → SUR 3N 23:34
PROVIDERS: ADMIT Internal Medicine; ATTEND Family Medicine
PROC: BT1F1ZZ Fluoroscopy of Left Kidney, Ureter and Bladder using Low Osmolar Contrast (ICD-10-PCS; 2019-12-03)
PROC: 0T778DZ Dilation of Left Ureter with Intraluminal Device, Via Natural or Artificial Opening Endoscopic (ICD-10-PCS; principal; 2019-12-03 15:54)
DX: A41.9 Sepsis, unspecified organism (principal); E11.22 Type 2 diabetes mellitus with diabetic chronic kidney disease; E78.00 Pure hypercholesterolemia, unspecified; E78.5 Hyperlipidemia, unspecified; F15.10 Other stimulant abuse, uncomplicated; G47.33 Obstructive sleep apnea (adult) (pediatric); E66.01 Morbid (severe) obesity due to excess calories; I13.0 Hypertensive heart and chronic kidney disease with heart failure and stage 1 through stage 4 chronic kidney disease, or unspecified chronic kidney disease; I50.9 Heart failure, unspecified; J44.9 Chronic obstructive pulmonary disease, unspecified; N13.6 Pyonephrosis; N17.9 Acute kidney failure, unspecified; N18.9 Chronic kidney disease, unspecified; Z79.899 Other long term (current) drug therapy; Z85.038 Personal history of other malignant neoplasm of large intestine; Z85.47 Personal history of malignant neoplasm of testis; Z87.19 Personal history of other diseases of the digestive system; Z87.891 Personal history of nicotine dependence; Z90.79 Acquired absence of other genital organ(s); Z92.21 Personal history of antineoplastic chemotherapy; Z68.42 Body mass index [BMI] 45.0-49.9, adult
CPT/HCPCS: 36415; 71045; 76000; 76937; 80053; 81001; 82948; 83036; 83690; 85007; 85025; 87070; 87075; 87081; 87088; 87102; 94640; 94660; 94760; 96374; 99285; A4338; A4618; C1758; C1769; C2617; G0378; J0330; J1644; J1815; J1956; J2175; J2250; J2270; J2405; J2704; J3010; J7030; Q9967

== ENCOUNTER 2020-02-29 05:19 | Day surgery (SDC) | payer MEDICAID ==
[2020-02-22 12:12] LABS: CLARITY,URINE CLOUDY (Clear); COLOR,URINE YELLOW (Yellow); GLUCOSE, URINE >=1000 mg/dl (Neg); KETONES,URINE NEGATIVE (Neg); LEUKOCYTE ESTERASE ,URINE SMALL (Neg); NITRITES, URINE NEGATIVE (Neg); OCCULT BLOOD,URINE MODERATE (Neg); PROTEIN,URINE 100 mg/dl (Neg); UROBILINOGEN,URINE 0.2 E.U/dL (0.2-1.0)
[2020-02-22 12:12] LABS: BASOPHILS % (AUTO) 0.5 % (0-1); EOSINOPHILS # (AUTO) 0.1 X10'3 (0-0.9); EOSINOPHILS % (AUTO) 1.5 % (0-6); LYMPHOCYTES # (AUTO) 1.8 X10'3 (1.1-4.8); LYMPHOCYTES % (AUTO) 18.8 % (21-51); MEAN CORPUSCULAR HEMOGLOBIN 27.4 PG (27.0-31.0); MEAN CORPUSCULAR HGB CONC 32.8 g/dL (33.0-36.5); MEAN CORPUSCULAR VOLUME 83.6 FL (78-98); MEAN PLATELET VOLUME 7.7 FL (7.4-10.4); MONOCYTES # (AUTO) 1.1 X10'3 (0-0.9); MONOCYTES % (AUTO) 11.1 % (2-12); NEUTROPHILS # (AUTO) 6.5 X10'3 (1.8-7.7); NEUTROPHILS % (AUTO) 68.1 % (42-75); PRE OP HEMOGLOBIN 14.1 g/dL (14.0-17.9); PRE OP PLATELET COUNT 236 X10'3 (140-440); RED BLOOD COUNT 5.14 X10'6 (4.70-6.10); RED CELL DISTRIBUTION WIDTH 15.7 % (11.5-14.5)
[2020-02-22 12:15] LABS: UA COLLECTION TYPE CLN CATCH MIDSTREAM
[2020-02-22 12:18] LABS: SQUAMOUS EPITHELIAL CELL,UR MODERATE /LPF (FEW)
[2020-02-22 12:19] LABS: BACTERIA,URINE FEW /HPF (Neg); WBC,URINE TNTC /HPF (0-4)
[2020-02-22 12:20] LABS: TRANSITIONAL EPI CELLS,URINE FEW /HPF
[2020-02-22 12:30] LABS: ALBUMIN 3.1 G/DL (3.4-5.0); ALBUMIN/GLOBULIN RATIO 0.7 (1.1-1.5); ALKALINE PHOSPHATASE 159 IU/L (46-116); BLOOD UREA NITROGEN 24 MG/DL (7-18); BUN/CREATININE RATIO 20.9 (5.4-32.0); CHLORIDE 106 MMOL/L (99-107); CREATININE 1.15 MG/DL (0.60-1.10); PRE OP ALT 48 U/L (30-65); PRE OP ANION GAP 11 (8-16); PRE OP AST 17 U/L (10-37); PRE OP BILIRUB, TOTAL 0.3 MG/DL (0.0-1.0); PRE OP POTASSIUM 4.6 MMOL/L (3.4-5.1); PRE OP SODIUM 140 MMOL/L (135-145); TOTAL CARBON DIOXIDE 22.6 MMOL/L (24-32); TOTAL PROTEIN 7.3 G/DL (6.4-8.2); eGFR 66 ML/MIN
[2020-02-22 12:39] LABS: PRE OP GLUCOSE 441 MG/DL (70-104)
[~2020-02-29] VITALS: Ht 167.6 cm; Wt 140.6 kg
[2020-02-29] VITALS (10 sets, daily range): BP systolic 134–186; BP diastolic 74–89
[~2020-02-29 05:19] MED LIST changes: +ACET-1015 PO; -CLOP75TA15 PO; +FLUT1BLS4 PO; -GABA-532 PO; +HYDR-3686 PO; -IBUP-1984 PO; -LORA10TA7 PO; -NITR0.4T48 SL; +OMEP-50 PO; -OXYC-150 PO; -PANT20TA2 PO; -TIOT18CA3 INH; +ringers solution, lacted 1,000 ML IV SCH
[2020-02-29] MEDS ORDERED: albuterol 2.5 MG/3 ML nebule NEB ONE (05:30)
[2020-02-29] MEDS ORDERED: ceFAZolin inj. 3,000 MG in normal saline 100ml IV soln 100 ML IV ONE (05:30)
[2020-02-29] MEDS ORDERED: famotidine 20mg tablet PO ONE (05:30)
[2020-02-29] MEDS ORDERED: LIDOcaine 1% (10mg/ml) 2ml vial ONE (05:52)
[2020-02-29] MEDS ORDERED: iohexol 300 MG/1 ML 50ml polymer ONE ×2 (06:46→08:34)
[2020-02-29] MEDS ORDERED: midazolam 2 mg/2 ml injection ONE (07:05)
[2020-02-29] MEDS ORDERED: fentaNYL/PF 50MCG/1 ML 2ML syringe ONE (07:05)
[2020-02-29] MEDS ORDERED: propofol inj 20 ML IV ONE ×2 (07:06)
[2020-02-29] MEDS ORDERED: LIDOcaine 2% (20mg/ml) 5ml vial ONE (07:06)
[2020-02-29] MEDS ORDERED: succinylcholine 20mg/ml inj IV ONE (07:07)
[2020-02-29] MEDS ORDERED: fentaNYL/PF 50MCG/1 ML 2ML syringe IV PRN ×2 (07:15)
[2020-02-29] MEDS ORDERED: hydrALAZINE 20mg/ml inj. IV PRN (07:15)
[2020-02-29] MEDS ORDERED: labetalol 20mg/4ml (5mg/ml) syringe IV PRN (07:15)
[2020-02-29] MEDS ORDERED: morphine 4 MG/ML inj SYRINge IV PRN (07:15)
[2020-02-29] MEDS ORDERED: morphine 2 MG/ML inj. syringe IV PRN (07:15)
[2020-02-29] MEDS ORDERED: ondansetron/PF 4mg/2ml inj IV PRN (07:15)
[2020-02-29] MEDS ORDERED: ringers solution, lacted 1,000 ML IV SCH (07:15)
[2020-02-29] MEDS ORDERED: sevoflurane 250ml liquid IH ONE (07:20)
[2020-02-29] MEDS ORDERED: ondansetron/PF 4mg/2ml inj ONE (07:20)
--- NOTE | 2020-02-29 09:10 | NUR ---
Received from OR via BED, accompanied by Anesthesiologist DR CARRANZA- and report given by Anesthesiolgist. PATIENT A&OX4, DENIES PAIN, V/S WNL, NEUROVASCULAR CHECKS INTACT, 20G PIV ENMANUEL CORDOVA, SCD ON.
--- NOTE | 2020-02-29 11:00 | NUR ---
PATIENT A&OX4, DENIES PAIN, V/S WNL, NEUROVASCULAR CHECKS INTACT, 20G PIV RANDYE TASHA D/C, SCD OFF.PATIENT VOIDED WITH UNDER 50CC RESIDUAL. I HAVE REVIEWED D/C INSTRUCTIONS WITH PATIENT AND FAMILY AND THEY HAVE VERBALIZED UNDERSTANDING. PATIENT D/C HOME WITH ALL BELONGINGS AND FAMILY GAVE TRANSPORT HOME.PATIENT OFFERED MASK BUT REFUSED TO WEAR IT AT UPON D/C.
== END 2020-02-29 11:00 | disposition home or self-care (01) ==
LOC: PAS 05:19
PROVIDERS: ATTEND Student in an Organized Health Care Education/Training Program
DX: N13.0 Hydronephrosis with ureteropelvic junction obstruction (principal); J44.9 Chronic obstructive pulmonary disease, unspecified; G47.30 Sleep apnea, unspecified; I10 Essential (primary) hypertension; E11.40 Type 2 diabetes mellitus with diabetic neuropathy, unspecified; K21.9 Gastro-esophageal reflux disease without esophagitis; E66.01 Morbid (severe) obesity due to excess calories; Z68.43 Body mass index [BMI] 50.0-59.9, adult; Z85.038 Personal history of other malignant neoplasm of large intestine; Z98.890 Other specified postprocedural states; Z87.891 Personal history of nicotine dependence; Z20.828 Contact with and (suspected) exposure to other viral communicable diseases; Z87.440 Personal history of urinary (tract) infections; Z85.47 Personal history of malignant neoplasm of testis; Z90.79 Acquired absence of other genital organ(s)
CPT/HCPCS: 36415; 52332; 52345; 71046; 76000; 76937; 80053; 81001; 82948; 85025; 87088; 87635; 93005; 94640; 94760; C1726; C1758; C1769; C2617; J0330; J0690; J2001; J2250; J2405; J2704; J3010; Q9967; A4618; J3490; J7120

== ENCOUNTER 2021-04-07 10:20 | Outpatient (CLI) | payer MEDICAID ==
[~2021-04-07] VITALS: Ht 167.6 cm; Wt 135.6 kg
[~2021-04-07 10:20] MED LIST changes: +LISI10TA27 PO; -LISI10TA4 PO; -ringers solution, lacted 1,000 ML IV SCH
[2021-04-07 12:10] LABS: BASOPHILS % (AUTO) 0.2 % (0-1); EOSINOPHILS # (AUTO) 0.2 X10'3 (0-0.9); EOSINOPHILS % (AUTO) 1.7 % (0-6); LYMPHOCYTES # (AUTO) 1.6 X10'3 (1.1-4.8); LYMPHOCYTES % (AUTO) 16.9 % (21-51); MEAN CORPUSCULAR HEMOGLOBIN 26.2 PG (27.0-31.0); MEAN CORPUSCULAR HGB CONC 32.4 g/dL (33.0-36.5); MEAN CORPUSCULAR VOLUME 80.9 FL (78-98); MONOCYTES # (AUTO) 0.9 X10'3 (0-0.9); MONOCYTES % (AUTO) 9.5 % (2-12); NEUTROPHILS # (AUTO) 6.8 X10'3 (1.8-7.7); NEUTROPHILS % (AUTO) 71.7 % (42-75); PRE OP HEMATOCRIT 43.2 % (42.0-52.0); PRE OP PLATELET COUNT 286 X10'3 (140-440); RED BLOOD COUNT 5.34 X10'6 (4.70-6.10); RED CELL DISTRIBUTION WIDTH 16.4 % (11.5-14.5)
[2021-04-07 12:17] LABS: ALBUMIN 2.7 G/DL (3.4-5.0); ALBUMIN/GLOBULIN RATIO 0.7 (1.1-1.5); ALKALINE PHOSPHATASE 136 IU/L (46-116); BLOOD UREA NITROGEN 21 MG/DL (7-18); BUN/CREATININE RATIO 17.9 (5.4-32.0); CALCIUM 8.1 MG/DL (8.5-10.1); CHLORIDE 105 MMOL/L (99-107); CREATININE 1.17 MG/DL (0.60-1.10); PRE OP ALT 25 U/L (30-65); PRE OP ANION GAP 7 (8-16); PRE OP AST 10 U/L (10-37); PRE OP BILIRUB, TOTAL 0.3 MG/DL (0.0-1.0); PRE OP POTASSIUM 4.8 MMOL/L (3.4-5.1); PRE OP SODIUM 142 MMOL/L (135-145); TOTAL CARBON DIOXIDE 29.7 MMOL/L (24-32); TOTAL PROTEIN 6.6 G/DL (6.4-8.2); eGFR 65 ML/MIN
[2021-04-07 12:22] LABS: PRE OP GLUCOSE 272 MG/DL (70-104)
[2021-04-07] MEDS ORDERED: SILD50TA PO (12:52)
[2021-04-07] MEDS ORDERED: MONT10TA21 PO (12:52)
[2021-04-12] MEDS ORDERED: ringers solution, lacted 1,000 ML IV SCH (05:00)
[2021-04-12] MEDS ORDERED: albuterol 2.5 MG/3 ML nebule NEB ONE (05:30)
[2021-04-12] MEDS ORDERED: ceFAZolin inj. 3,000 MG in normal saline 100ml IV soln 100 ML IV ONE (05:30)
[2021-04-12] MEDS ORDERED: cefazolin/dext.iso 2gm/50ml IV ONE (05:30)
[2021-04-12] MEDS ORDERED: famotidine 20mg tablet PO ONE (05:30)
== END 2021-04-07 23:59 | disposition home or self-care (01) ==
LOC: PRE-OP 10:20 → EDSTATUS 04-12 12:30
PROVIDERS: ATTEND Student in an Organized Health Care Education/Training Program
DX: Z01.818 Encounter for other preprocedural examination (principal); N13.39 Other hydronephrosis; Z20.822 Contact with and (suspected) exposure to COVID-19; Z85.47 Personal history of malignant neoplasm of testis; Z85.038 Personal history of other malignant neoplasm of large intestine; Z87.891 Personal history of nicotine dependence
CPT/HCPCS: 36415; 71046; 80053; 85025; 93005; U0003; U0005; J0690; J3490; J7120

== ENCOUNTER → 2021-05-05 | Day surgery (SDC) | payer MEDICAID ==
[2021-05-04 16:56] LABS: BASOPHILS % (AUTO) 0.4 % (0-1); EOSINOPHILS # (AUTO) 0.2 X10'3 (0-0.9); LYMPHOCYTES # (AUTO) 2.1 X10'3 (1.1-4.8); LYMPHOCYTES % (AUTO) 22.1 % (21-51); MEAN CORPUSCULAR HEMOGLOBIN 25.7 PG (27.0-31.0); MEAN CORPUSCULAR HGB CONC 32.2 g/dL (33.0-36.5); MEAN CORPUSCULAR VOLUME 79.8 FL (78-98); MEAN PLATELET VOLUME 7.1 FL (7.4-10.4); MONOCYTES # (AUTO) 0.9 X10'3 (0-0.9); MONOCYTES % (AUTO) 9.6 % (2-12); NEUTROPHILS # (AUTO) 6.1 X10'3 (1.8-7.7); NEUTROPHILS % (AUTO) 65.9 % (42-75); PRE OP HEMATOCRIT 43.1 % (42.0-52.0); PRE OP HEMOGLOBIN 13.9 g/dL (14.0-17.9); PRE OP PLATELET COUNT 289 X10'3 (140-440)
[2021-05-04 17:58] LABS: ALBUMIN 3.1 G/DL (3.4-5.0); ALBUMIN/GLOBULIN RATIO 0.9 (1.1-1.5); ALKALINE PHOSPHATASE 148 IU/L (46-116); BLOOD UREA NITROGEN 24 MG/DL (7-18); CALCIUM 8.5 MG/DL (8.5-10.1); CHLORIDE 106 MMOL/L (99-107); PRE OP ALT 34 U/L (30-65); PRE OP ANION GAP 9 (8-16); PRE OP AST 13 U/L (10-37); PRE OP BILIRUB, TOTAL 0.3 MG/DL (0.0-1.0); PRE OP POTASSIUM 4.5 MMOL/L (3.4-5.1); PRE OP SODIUM 143 MMOL/L (135-145); TOTAL CARBON DIOXIDE 27.6 MMOL/L (24-32); TOTAL PROTEIN 6.7 G/DL (6.4-8.2); eGFR 63 ML/MIN
[2021-05-04 18:02] LABS: PRE OP GLUCOSE 262 MG/DL (70-104)
[2021-05-05] VITALS (8 sets, daily range): BP systolic 122–137; BP diastolic 70–84
[~2021-05-05] VITALS: Ht 167.6 cm; Wt 139.0 kg
[~2021-05-05] MED LIST changes: -FENO134C PO; +MONT10TA21 PO; -OMEP-50 PO; +OMEP20CA16 PO; +SILD50TA PO; +albuterol 2.5 MG/3 ML nebule NEB ONE; +ceFAZolin inj. 3,000 MG in normal saline 100ml IV soln 100 ML IV ONE; +famotidine 20mg tablet PO ONE; +fentaNYL/PF 50MCG/1 ML 2ML syringe ONE; +iohexol 300 MG/1 ML 50ml polymer ONE; +meperidine/PF 25mg/ml syringe IV PRN; +midazolam 1 mg/ML 2ml injection ONE; +morphine 2 MG/ML inj. syringe IV PRN; +morphine 4 MG/ML inj SYRINge IV PRN; +ondansetron/PF 4mg/2ml inj IV PRN; +proCHLORperazine 10 MG/2 ml inj IV PRN; +propofol inj 20 ML IV ONE; +ringers solution, lacted 1,000 ML IV SCH; +rocuronium 10mg/ml inj IV ONE; +sevoflurane 250ml liquid IH ONE; +succinylcholine 20mg/ml inj IV ONE; +sugammadex 200mg/2ml injection IV ONE
--- NOTE | 2021-05-05 14:46 | NUR ---
ALL DISCHARGE CRITERIA HAS BEEN MET. VSS, PAIN AT A TOLERABLE LEVEL, AND ABLE TO SAFELY AMBULATE AND TRANSFER SELF. IV TAKEN OUT WITHOUT ANY COMPLICATIONS. ALL DISCHARGE INSTRUCTIONS COVERED WITH PATIENT AND ALL QUESTIONS ANSWERED. PATIENT TAKEN OUT VIA WHEELCHAIR TO PERSONAL VEHICLE WHERE FAMILY/FRIEND DROVE PATIENT HOME. Addendum: 05/05/21 at 1518 by Gaetano Evans RN, RN Amended: Links added.
== END | disposition home or self-care (01) ==
LOC: PAS 11:00
PROVIDERS: ATTEND Student in an Organized Health Care Education/Training Program
DX: N13.0 Hydronephrosis with ureteropelvic junction obstruction (principal); I10 Essential (primary) hypertension; J44.9 Chronic obstructive pulmonary disease, unspecified; K21.9 Gastro-esophageal reflux disease without esophagitis; E11.40 Type 2 diabetes mellitus with diabetic neuropathy, unspecified; G47.30 Sleep apnea, unspecified; E66.01 Morbid (severe) obesity due to excess calories; Z68.42 Body mass index [BMI] 45.0-49.9, adult; Z87.891 Personal history of nicotine dependence; Z85.47 Personal history of malignant neoplasm of testis; Z79.4 Long term (current) use of insulin; Z79.899 Other long term (current) drug therapy; Z98.890 Other specified postprocedural states; Z90.49 Acquired absence of other specified parts of digestive tract; Z87.440 Personal history of urinary (tract) infections; Z86.19 Personal history of other infectious and parasitic diseases; Z20.822 Contact with and (suspected) exposure to COVID-19
CPT/HCPCS: 36415; 52332; 74420; 80053; 82948; 85025; 87635; 94640; 94760; C1758; C1769; C9803; J0330; J0690; J2250; J2704; J3010; J3490; J7030; J7120; Q9967; Z7506; Z7512; 76000; A4618

== ENCOUNTER 2022-11-10 10:40 | Inpatient (IN) | payer MEDICAID ==
[~2022-11-10] VITALS: Ht 167.6 cm; Wt 304.0 kg
[~2022-11-10 10:40] MED LIST changes: +MONT-47 PO; -MONT10TA21 PO; -albuterol 2.5 MG/3 ML nebule NEB ONE; -ceFAZolin inj. 3,000 MG in normal saline 100ml IV soln 100 ML IV ONE; -famotidine 20mg tablet PO ONE; -fentaNYL/PF 50MCG/1 ML 2ML syringe ONE; -iohexol 300 MG/1 ML 50ml polymer ONE; -meperidine/PF 25mg/ml syringe IV PRN; -midazolam 1 mg/ML 2ml injection ONE; -morphine 2 MG/ML inj. syringe IV PRN; -morphine 4 MG/ML inj SYRINge IV PRN; -ondansetron/PF 4mg/2ml inj IV PRN; -proCHLORperazine 10 MG/2 ml inj IV PRN; -propofol inj 20 ML IV ONE; -ringers solution, lacted 1,000 ML IV SCH; -rocuronium 10mg/ml inj IV ONE; -sevoflurane 250ml liquid IH ONE; -succinylcholine 20mg/ml inj IV ONE; -sugammadex 200mg/2ml injection IV ONE
[2022-11-10] MEDS ORDERED: acetaminophen 325mg tablet PO STA (11:06)
[2022-11-10] MEDS ORDERED: methylPREDNISolone sod succ 125mg/2ml vial IV ONE (11:10)
[2022-11-10] MEDS ORDERED: albuterol 2.5 MG/3 ML nebule CONTNEB PRN (11:10)
[2022-11-10] MEDS ORDERED: azithromycin/NS 500mg/250ml 250 ML IV ONE (11:10)
[2022-11-10] MEDS ORDERED: CefTRIAXone 2gm/D5W 50ml BAG 50 ML IV ONE (11:10)
[2022-11-10] MEDS ORDERED: nitroGLYCERIN 0.4mg SUBLingual tab SL PRN (11:10)
[2022-11-10] MEDS ORDERED: aspirin 325mg tablet PO ONE (11:10)
[2022-11-10] MEDS ORDERED: ipratropium 0.5 MG/2.5ML nebule IH ONE (11:10)
[2022-11-10 11:23] LABS: BASOPHILS % (AUTO) 0.3 % (0-1); EOSINOPHILS # (AUTO) 0.1 X10'3 (0-0.9); EOSINOPHILS % (AUTO) 0.8 % (0-6); HEMATOCRIT 46.9 % (42.0-52.0); HEMOGLOBIN 15.2 g/dl (14.0-17.9); LYMPHOCYTES # (AUTO) 1.4 X10'3 (1.1-4.8); LYMPHOCYTES % (AUTO) 10.5 % (21-51); MEAN CORPUSCULAR HEMOGLOBIN 26.6 PG (27.0-31.0); MEAN CORPUSCULAR HGB CONC 32.3 g/dL (33.0-36.5); MEAN CORPUSCULAR VOLUME 82.2 FL (78-98); MEAN PLATELET VOLUME 7.4 FL (7.4-10.4); MONOCYTES # (AUTO) 1.5 X10'3 (0-0.9); MONOCYTES % (AUTO) 10.9 % (2-12); NEUTROPHILS # (AUTO) 10.5 X10'3 (1.8-7.7); NEUTROPHILS % (AUTO) 77.5 % (42-75); PLATELET COUNT 251 X10'3 (140-440); RED BLOOD COUNT 5.71 X10'6 (4.70-6.10); RED CELL DISTRIBUTION WIDTH 17.4 % (11.5-14.5); WHITE BLOOD COUNT 13.6 X10'3 (4.5-11.0)
[2022-11-10 11:45] LABS: ALANINE AMINOTRANSFERASE 28 U/L (12-78); ALBUMIN 3.3 G/DL (3.4-5.0); ALBUMIN/GLOBULIN RATIO 0.8 (1.1-1.5); ALKALINE PHOSPHATASE 109 IU/L (46-116); ANION GAP 19 (8-16); ASPARTATE AMINO TRANSFERASE 12 U/L (10-37); BILIRUBIN,TOTAL 0.8 MG/DL (0.1-1.0); BLOOD UREA NITROGEN 61 MG/DL (7-18); CALCIUM 9.7 MG/DL (8.5-10.1); CHLORIDE 95 MMOL/L (99-107); CREATININE 4.37 MG/DL (0.60-1.10); POTASSIUM 4.9 MMOL/L (3.5-5.1); PRO BRAIN NATRIURETIC PEPTIDE 846 PG/ML (0-125); SODIUM 132 MMOL/L (135-145); TOTAL PROTEIN 7.3 G/DL (6.4-8.2); eCRCL 17 ML/MIN; eGFR 14 ML/MIN
[2022-11-10 11:46] LABS: ABG BASE EXCESS -5.1 mmol/L (-2.0-2.0); ABG HCO3 19.9 mmol/L (22.0-26.0); ABG OXYGEN SATURATION 95.9 % (94-97); ABG PCO2 (T) 36.8 mmHg (35.0-48.0); ABG PO2 (T) 86.1 mmHg (75.0-100.0); ALLEN'S TEST POSITIVE; FLOW 5 L/min; FMetHb 0.3 % (0.0-1.5); FO2Hb 94.7 % (94-97); MODE NASAL CANNULA; PATIENT TEMPERATURE 36.8; TOTAL HEMOGLOBIN 16.4 G/dl (14.0-17.9)
[2022-11-10 11:50] LABS: GLUCOSE 503 MG/DL (70-104)
[2022-11-10 11:53] VITALS: PULSE 103; RESP 22; O2SAT 95
[2022-11-10 12:02] LABS: MAGNESIUM 2.1 MG/DL (1.5-2.4)
--- NOTE | 2022-11-10 12:42 | NUR ---
RN MADE MULTIPLE ATTEMPTS AT IV AND UNSUCCESSFUL. KEELY RUFFIN WILL ATTEMPT IV WITH US AT THIS TIME.
[2022-11-10 13:00] VITALS: PULSE 120; RESP 22; O2SAT 96
[2022-11-10] MEDS ORDERED: normal saline 1000ML IV soln IV ONE (13:30)
[2022-11-10] MEDS ORDERED: albumin (human) 25% 100 ML IV solution IV ONE (13:30)
--- NOTE | 2022-11-10 13:31 | NUR ---
PT CP RETURNED HR 158 SYS 90 SO RN DID NOT ADMIN NITRO TABLET. PER DR MCBRIDE HE WILL ORD ALBUMIN AND RN TO ADMIN ARISTEO AND ADMIN BOLUS OF NS.
--- NOTE | 2022-11-10 13:44 | NUR ---
RT AT BEDSIDE APPLYING BIPAP.
[2022-11-10] MEDS ORDERED: insulin regular, human 10 units/0.1 ml syringe IV ONE (13:50)
[2022-11-10] MEDS ORDERED: vancomycin/NS 1 GM ADD-VANTAGE 250 ML X 1 DOSE IV ONE (13:50)
[2022-11-10 13:53] VITALS: PULSE 156; RESP 27; O2SAT 99
--- NOTE | 2022-11-10 14:11 | NUR ---
PER DR MCBRIDE HE WILL ORD CARDIZEM D/T PT HR 159. RN WILL ADMIN ONCE VERIFIED.
[2022-11-10] MEDS: diltiazem 5mg/ml 5ml inj. IV ONE ×2 (14:16→14:33)
--- NOTE | 2022-11-10 14:25 | NUR ---
RN UNABLE TO ADMIN CARDIZEM D/T PT IV IS BAD. KEELY RN AT BEDSIDE AT THIS TIME ATTEMPTING IV WITH US.
--- NOTE | 2022-11-10 14:36 | NUR ---
ALBUMIN/ROCEPHIN/ZITROMYCIN NOT COMPATIBLE. WILL HAVE TO INFUSE SEPARATE. PT IS HARD STICK. RN WILL ATTEMPT MORE IVS US.
[2022-11-10] MEDS ORDERED: acetaminophen 325mg tablet PO PRN (15:05)
[2022-11-10] MEDS ORDERED: magnesium Cl slow-release 64mg tablet PO PRN (15:05)
[2022-11-10] MEDS ORDERED: PERFLUTREN PROTEIN-A MICROSPHR (Optison) 0.22 MG/ML 3ML VIAL IV ONE (15:05)
[2022-11-10] MEDS ORDERED: magnesium 4gm in 100ml NS 100 ML IV PRN (15:05)
[2022-11-10] MEDS ORDERED: potassium Cl 40MEQ/1/2NS 520ml 520 ML IV PRN (15:05)
[2022-11-10] MEDS ORDERED: magnesium 2GM in 50ml NS 50 ML IV PRN (15:05)
[2022-11-10] MEDS ORDERED: potassium Cl 20 mEq SR tablet PO PRN ×2 (15:05)
[2022-11-10] MEDS ORDERED: morphine 2 MG/ML inj. syringe IV PRN (15:05)
[2022-11-10] MEDS: pantoprazole 40mg Tablet.DR PO SCH (15:15)
--- NOTE | 2022-11-10 15:16 | NUR ---
PHARM UNABLE TO RETIME PROTONIX ORD FOR BREAKFAST. RN NON ADMIN. DR MCBRIDE HAS LEFT FOR THE DAY AND PT AWAITING HOSPITALIST.
--- NOTE | 2022-11-10 17:03 | NUR ---
RN PAGED DR QUIROGA TO NOTIFY THAT PT BG STILL ELEVATED AT 420 AND TO INQUIRE IF SHE WANTS LASIX ADMIN D/T SHE MENTIONED EARLIER. RN PAGED MESSAGE AND TO RETURN CALL TO ED.
--- NOTE | 2022-11-10 17:06 | NUR ---
RN PAGED DR QUIROGA AND REQ HYPERGLYCEMIA PROTOCOL BE ORD D/T PT BG 420/GOT 5 UNITS OF HUMULIN AT 1442 AND ASKING FOR FOOD.
[2022-11-10] MEDS ORDERED: glucagon, human recombinant 1mg kit SUBCUT PRN (17:15)
[2022-11-10] MEDS ORDERED: MESSAGE TO PHARMACY PO ONE (17:15)
[2022-11-10] MEDS ORDERED: furosemide 10 MG/1 ML 10ml inj IV ONE (17:15)
[2022-11-10] MEDS ORDERED: dextrose 50%-water 50ml dispensing syringe IV PRN ×2 (17:15)
[2022-11-10] MEDS ORDERED: DEXTROSE 15 GM of carb/4 tabs (each vial/BOTTLE has 4 tablets) PO PRN ×2 (17:15)
[2022-11-10 18:07] LABS: HEMOGLOBIN A1C 11.4 % (4.5-6.2)
--- NOTE | 2022-11-10 18:28 | NUR ---
RN UNABLE TO ADMIN LASIX WHEN SCHEDULED D/T SHE WAS PERFORMING PROCEDURE FOR ANOTHER PT. RN WILL NOTIFY ONCOMING RN TO ADMIN.
[2022-11-10 19:28] LABS: BILIRUBIN,URINE NEGATIVE (Neg); CLARITY,URINE TURBID (Clear); COLOR,URINE YELLOW (Yellow); GLUCOSE, URINE >=1000 mg/dl (Neg); KETONES,URINE NEGATIVE (Neg); LEUKOCYTE ESTERASE ,URINE MODERATE (Neg); NITRITES, URINE NEGATIVE (Neg); OCCULT BLOOD,URINE MODERATE (Neg); PH,URINE 5.5 (4.8-8.0); PROTEIN,URINE 100 mg/dl (Neg); UA COLLECTION TYPE CLN CATCH MIDSTREAM; UROBILINOGEN,URINE 0.2 E.U/dL (0.2-1.0)
[2022-11-10 19:38] LABS: BACTERIA,URINE 1+ /HPF (Neg); MUCUS STRANDS FEW /LPF (Neg); RBC,URINE 0-2 /HPF (0-2); SQUAMOUS EPITHELIAL CELL,UR FEW /LPF (FEW); WBC,URINE TNTC /HPF (0-4)
[2022-11-10] MEDS ORDERED: K and/or MAG REPLACEMENT MC SCH (20:00)
--- NOTE | 2022-11-10 20:08 | NUR ---
Pt was offered a carb controlled diet tray, which he accepted and ate after he ate the burger his nephew brought him. Pt educated on the importance of carb control when administering his insulin
[2022-11-10 23:29] VITALS: PULSE 98; RESP 25; O2SAT 99
[2022-11-11] VITALS (27 sets, daily range): BP systolic 105–142; BP diastolic 52–67; PULSE 83–97; RESP 16–26; TEMP 97.5–99.7; O2SAT 92–100
[2022-11-11] MEDS ORDERED: insulin Lispro (HumaLOG) vial - multi-dose SQ ONE (00:05)
[2022-11-11] MEDS ORDERED: potassium Cl 20 mEq SR tablet PO PRN ×2 (00:40)
[2022-11-11] MEDS: heparin, porcine 5000 units/ml vial SQ SCH ×3 (00:40→21:15)
[2022-11-11] MEDS ORDERED: sodium phosphate inj. 30 MMOL in dextrose 5%-water 250 ML IV PRN (00:40)
[2022-11-11] MEDS ORDERED: sodium bicarbonate (8.4%) inj. 50 MEQ in dextrose 5% water 500ml 250 ML IV PRN (00:40)
[2022-11-11] MEDS ORDERED: sodium phosphate inj. 15 MMOL in dextrose 5%-water 250 ML IV PRN (00:40)
[2022-11-11] MEDS ORDERED: insulin regular, human U-100 3ml vial - multi-dose IV PRN (00:40)
[2022-11-11] MEDS ORDERED: Neutra Phos packet PO PRN (00:40)
[2022-11-11] MEDS: normal saline 1000ml 1,000 ML IV SCH ×11 (00:40→20:40)
[2022-11-11] MEDS ORDERED: potassium Cl 40MEQ/1/2NS 520ml 520 ML IV PRN ×2 (00:40)
[2022-11-11] MEDS ORDERED: sodium bicarbonate (8.4%) inj. 100 MEQ in dextrose 5% water 500ml 500 ML IV PRN (00:40)
[2022-11-11] MEDS ORDERED: potassium CL 20mEq in D5-1/2NS 1,000 ML IV PRN (00:40)
[2022-11-11] MEDS: insulin glargine (Lantus) pen - multi-dose SQ SCH (00:44)
[2022-11-11 02:45] LABS: ALANINE AMINOTRANSFERASE 28 U/L (12-78); ALBUMIN 3.5 G/DL (3.4-5.0); ALBUMIN/GLOBULIN RATIO 0.8 (1.1-1.5); ALKALINE PHOSPHATASE 104 IU/L (46-116); ANION GAP 15 (8-16); ASPARTATE AMINO TRANSFERASE 7 U/L (10-37); BILIRUBIN,TOTAL 0.6 MG/DL (0.1-1.0); BLOOD UREA NITROGEN 70 MG/DL (7-18); BUN/CREATININE RATIO 18.7 (10.0-20.0); CALCIUM 8.7 MG/DL (8.5-10.1); CHLORIDE 96 MMOL/L (99-107); CREATININE 3.74 MG/DL (0.60-1.10); PHOSPHORUS 6.6 MG/DL (2.3-4.5); POTASSIUM 5.2 MMOL/L (3.5-5.1); SODIUM 133 MMOL/L (135-145); TOTAL CARBON DIOXIDE 21.8 MMOL/L (24-32); TOTAL PROTEIN 7.7 G/DL (6.4-8.2); eCRCL 20 ML/MIN; eGFR 17 ML/MIN
[2022-11-11 02:51] LABS: GLUCOSE 586 MG/DL (70-104)
[2022-11-11] MEDS: ipratropium/albuterol 3ml nebule NEB SCH ×6 (03:00→22:32)
[2022-11-11] MEDS: Insulin Reg/NS 100units/100mL 100 ML IV SCH ×2 (03:01→20:40)
[2022-11-11 05:00] LABS: MAGNESIUM 2.1 MG/DL (1.5-2.4)
--- NOTE | 2022-11-11 06:29 | NUR ---
Pt ref to wear playground monitor. Pt educated to poss ASE r/t not wearing his monitor. Pt states "I am ready to see God if it is my time." has been notified.
[2022-11-11 07:07] LABS: BASOPHILS # (AUTO) 0.1 X10'3 (0-0.2); BASOPHILS % (AUTO) 0.5 % (0-1); EOSINOPHILS % (AUTO) 0 % (0-6); HEMATOCRIT 42.3 % (42.0-52.0); HEMOGLOBIN 13.7 g/dl (14.0-17.9); LYMPHOCYTES # (AUTO) 0.8 X10'3 (1.1-4.8); LYMPHOCYTES % (AUTO) 6.3 % (21-51); MEAN CORPUSCULAR HEMOGLOBIN 26.4 PG (27.0-31.0); MEAN CORPUSCULAR HGB CONC 32.3 g/dL (33.0-36.5); MEAN CORPUSCULAR VOLUME 81.7 FL (78-98); MEAN PLATELET VOLUME 7.4 FL (7.4-10.4); MONOCYTES # (AUTO) 0.8 X10'3 (0-0.9); MONOCYTES % (AUTO) 5.7 % (2-12); NEUTROPHILS # (AUTO) 11.5 X10'3 (1.8-7.7); NEUTROPHILS % (AUTO) 87.5 % (42-75); PLATELET COUNT 232 X10'3 (140-440); RED BLOOD COUNT 5.18 X10'6 (4.70-6.10); RED CELL DISTRIBUTION WIDTH 17.1 % (11.5-14.5); WHITE BLOOD COUNT 13.1 X10'3 (4.5-11.0)
[2022-11-11 07:45] LABS: ALBUMIN 3.3 G/DL (3.4-5.0); ANION GAP 11 (8-16); BLOOD UREA NITROGEN 64 MG/DL (7-18); BUN/CREATININE RATIO 22.1 (10.0-20.0); CALCIUM 8.5 MG/DL (8.5-10.1); CHLORIDE 104 MMOL/L (99-107); GLUCOSE 288 MG/DL (70-104); PHOSPHORUS 5.1 MG/DL (2.3-4.5); POTASSIUM 4.7 MMOL/L (3.5-5.1); SODIUM 138 MMOL/L (135-145); eCRCL 25 ML/MIN; eGFR 23 ML/MIN
[2022-11-11] MEDS: K and/or MAG REPLACEMENT MC SCH ×2 (08:00→20:00)
[2022-11-11] MEDS: methylPREDNISolone sod succ/PF 40mg inj. IV SCH ×2 (08:20→20:00)
[2022-11-11 08:51] LABS: BASOPHILS % (AUTO) 0.3 % (0-1); EOSINOPHILS % (AUTO) 0 % (0-6); HEMATOCRIT 41.1 % (42.0-52.0); HEMOGLOBIN 13.3 g/dl (14.0-17.9); LYMPHOCYTES % (AUTO) 6.8 % (21-51); MEAN CORPUSCULAR HEMOGLOBIN 26.6 PG (27.0-31.0); MEAN CORPUSCULAR HGB CONC 32.4 g/dL (33.0-36.5); MEAN CORPUSCULAR VOLUME 82.2 FL (78-98); MEAN PLATELET VOLUME 7.5 FL (7.4-10.4); MONOCYTES # (AUTO) 1.5 X10'3 (0-0.9); MONOCYTES % (AUTO) 9.7 % (2-12); NEUTROPHILS # (AUTO) 12.6 X10'3 (1.8-7.7); NEUTROPHILS % (AUTO) 83.2 % (42-75); PLATELET COUNT 230 X10'3 (140-440); RED BLOOD COUNT 4.99 X10'6 (4.70-6.10); RED CELL DISTRIBUTION WIDTH 16.8 % (11.5-14.5); WHITE BLOOD COUNT 15.1 X10'3 (4.5-11.0)
[2022-11-11] MEDS: insulin Lispro (HumaLOG) vial - multi-dose SQ SCH ×4 (09:53→21:26)
--- NOTE | 2022-11-11 10:53 | NUR ---
BG UNABLE TO PULL FROM ACCUCHECK. SEE DOCUMENTED BG
[2022-11-11] MEDS: azithromycin/NS 500mg/250ml 250 ML IV SCH (11:11)
[2022-11-11] MEDS ORDERED: regadenoson 0.4mg/5ml syringe IV PRN (11:35)
[2022-11-11] MEDS ORDERED: nitroGLYCERIN 0.4mg SUBLingual tab SL PRN (11:35)
[2022-11-11] MEDS ORDERED: aminophylline 250mg/10ml inj. IV PRN (11:35)
[2022-11-11] MEDS ORDERED: metoprolol tartrate 1mg/ml inj IV PRN (11:35)
--- NOTE | 2022-11-11 13:55 | NUR ---
Pt is still at stress test. Will check BG when he returns
--- NOTE | 2022-11-11 15:56 | NUR ---
PAGER ID: [phone] MESSAGE: DALTON ON [email or web address], JENNIFER REPORT IS AVAILBLE FOR [id number] BJ DIAZ
--- NOTE | 2022-11-11 17:40 | NUR ---
PAGER ID: [phone] MESSAGE: Daryl [id number]-Pt had a sugar of 418 at 1530 pm, had late lunch and took 22 units. Sugar 413 now. Pt takes large amounts of insulin at home, unsure of name, that he states has been changed multiple times recently, plus steroids here.
--- NOTE | 2022-11-11 18:28 | NUR ---
Problems reprioritized. Patient report given, questions answered & plan of care reviewed with Anju. Addendum: 11/11/22 at 1829 by Vitaly Guillory RN Amended: Links added.
[2022-11-12] VITALS (21 sets, daily range): BP systolic 108–156; BP diastolic 65–80; PULSE 67–87; RESP 13–23; TEMP 97.4–98.3; O2SAT 90–100
[2022-11-12] MEDS: normal saline 1000ml 1,000 ML IV SCH ×4 (00:40→17:01)
[2022-11-12] MEDS: ipratropium/albuterol 3ml nebule NEB SCH ×6 (03:01→23:03)
--- NOTE | 2022-11-12 06:29 | NUR ---
Patient in room PCU 3023. I have received report from Lauri RUFFIN and had the opportunity to ask questions and assume patient care.
--- NOTE | 2022-11-12 06:34 | NUR ---
Problems reprioritized. Patient report given, questions answered & plan of care reviewed with Jere.
[2022-11-12 06:46] LABS: BASOPHILS # (AUTO) 0.1 X10'3 (0-0.2); BASOPHILS % (AUTO) 0.5 % (0-1); EOSINOPHILS # (AUTO) 0.1 X10'3 (0-0.9); EOSINOPHILS % (AUTO) 0.5 % (0-6); HEMATOCRIT 43.2 % (42.0-52.0); HEMOGLOBIN 13.7 g/dl (14.0-17.9); LYMPHOCYTES # (AUTO) 1.4 X10'3 (1.1-4.8); MEAN CORPUSCULAR HEMOGLOBIN 26.4 PG (27.0-31.0); MEAN CORPUSCULAR HGB CONC 31.8 g/dL (33.0-36.5); MEAN CORPUSCULAR VOLUME 82.9 FL (78-98); MEAN PLATELET VOLUME 7.8 FL (7.4-10.4); MONOCYTES # (AUTO) 1.2 X10'3 (0-0.9); MONOCYTES % (AUTO) 10.1 % (2-12); NEUTROPHILS # (AUTO) 9.1 X10'3 (1.8-7.7); NEUTROPHILS % (AUTO) 76.9 % (42-75); PLATELET COUNT 221 X10'3 (140-440); RED BLOOD COUNT 5.21 X10'6 (4.70-6.10); RED CELL DISTRIBUTION WIDTH 17.2 % (11.5-14.5); WHITE BLOOD COUNT 11.8 X10'3 (4.5-11.0)
[2022-11-12 06:54] LABS: ALBUMIN 3.1 G/DL (3.4-5.0); ANION GAP 9 (8-16); BLOOD UREA NITROGEN 54 MG/DL (7-18); BUN/CREATININE RATIO 37.5 (10.0-20.0); CALCIUM 9.1 MG/DL (8.5-10.1); CHLORIDE 107 MMOL/L (99-107); CREATININE 1.44 MG/DL (0.60-1.10); GLUCOSE 256 MG/DL (70-104); MAGNESIUM 2.5 MG/DL (1.5-2.4); PHOSPHORUS 4.3 MG/DL (2.3-4.5); POTASSIUM 4.6 MMOL/L (3.5-5.1); SODIUM 138 MMOL/L (135-145); TOTAL CARBON DIOXIDE 22.5 MMOL/L (24-32); eCRCL 51 ML/MIN; eGFR 51 ML/MIN
[2022-11-12] MEDS: K and/or MAG REPLACEMENT MC SCH ×2 (08:00→20:00)
[2022-11-12] MEDS: methylPREDNISolone sod succ/PF 40mg inj. IV SCH (09:12)
[2022-11-12] MEDS: pantoprazole 40mg Tablet.DR PO SCH (09:13)
[2022-11-12] MEDS: heparin, porcine 5000 units/ml vial SQ SCH ×2 (09:24→20:32)
[2022-11-12] MEDS: insulin Lispro (HumaLOG) vial - multi-dose SQ SCH ×4 (09:31→20:49)
[2022-11-12] MEDS: azithromycin/NS 500mg/250ml 250 ML IV SCH ×2 (11:00→12:15)
[2022-11-12] MEDS ORDERED: INSU300I3 SQ (11:47)
[2022-11-12] MEDS ORDERED: ATOR40TA72 PO (11:47)
[2022-11-12] MEDS ORDERED: DAPA10TA PO (11:47)
[2022-11-12] MEDS ORDERED: EZET10TA48 PO (11:47)
[2022-11-12] MEDS ORDERED: LISI20TA28 PO (11:47)
[2022-11-12] MEDS ORDERED: HYDR-3686 PO (11:47)
[2022-11-12] MEDS ORDERED: TIRZ7.5P SQ (11:47)
[2022-11-12] MEDS ORDERED: predniSONE 20 mg tablet PO ONE (11:50)
--- NOTE | 2022-11-12 14:17 | NUR ---
Diabetes consult: Pt presents with an A1c of 11.4% this admit and BG 183-413mg/dl for the past two days per EMR. Pt seen at bedside for diabetes nutrition education. Pt states he's "heard it all" through his first mate and is already doing all the things he can and is not interested on making any additional changes to his life style. Pt states "if I was given 60 days to live I would eat steak with a bucket of sugar on top". Pt encouraged to reach out for any nutrition questions or concerns. Pt declined written diabetes handouts. Will continue to monitor. Addendum: 11/12/22 at [address] Amended: Links added.
[2022-11-12] MEDS: insulin glargine (Lantus) pen - multi-dose SQ SCH (20:50)
[2022-11-13] VITALS (13 sets, daily range): BP systolic 132–149; BP diastolic 67–75; PULSE 65–88; RESP 15–30; TEMP 97.2–98.3; O2SAT 93–100
[2022-11-13] MEDS: ipratropium/albuterol 3ml nebule NEB SCH ×3 (03:21→12:00)
--- NOTE | 2022-11-13 06:40 | NUR ---
Problems reprioritized. Patient report given, questions answered & plan of care reviewed with Chang
[2022-11-13 07:17] LABS: BASOPHILS % (AUTO) 0.3 % (0-1); EOSINOPHILS # (AUTO) 0.1 X10'3 (0-0.9); EOSINOPHILS % (AUTO) 0.7 % (0-6); HEMATOCRIT 43.6 % (42.0-52.0); HEMOGLOBIN 13.9 g/dl (14.0-17.9); LYMPHOCYTES # (AUTO) 1.2 X10'3 (1.1-4.8); LYMPHOCYTES % (AUTO) 13.2 % (21-51); MEAN CORPUSCULAR HEMOGLOBIN 26.7 PG (27.0-31.0); MEAN CORPUSCULAR VOLUME 83.6 FL (78-98); MEAN PLATELET VOLUME 7.6 FL (7.4-10.4); MONOCYTES # (AUTO) 0.9 X10'3 (0-0.9); MONOCYTES % (AUTO) 9.3 % (2-12); NEUTROPHILS # (AUTO) 7.1 X10'3 (1.8-7.7); NEUTROPHILS % (AUTO) 76.5 % (42-75); PLATELET COUNT 244 X10'3 (140-440); RED BLOOD COUNT 5.22 X10'6 (4.70-6.10); RED CELL DISTRIBUTION WIDTH 17.1 % (11.5-14.5); WHITE BLOOD COUNT 9.3 X10'3 (4.5-11.0)
[2022-11-13 07:28] LABS: ANION GAP 10 (8-16); BLOOD UREA NITROGEN 41 MG/DL (7-18); BUN/CREATININE RATIO 30.4 (10.0-20.0); CALCIUM 8.9 MG/DL (8.5-10.1); CHLORIDE 107 MMOL/L (99-107); CREATININE 1.35 MG/DL (0.60-1.10); GLUCOSE 284 MG/DL (70-104); SODIUM 139 MMOL/L (135-145); TOTAL CARBON DIOXIDE 22.5 MMOL/L (24-32); eCRCL 54 ML/MIN; eGFR 54 ML/MIN
[2022-11-13 07:38] LABS: POTASSIUM 4.9 MMOL/L (3.5-5.1)
[2022-11-13] MEDS ORDERED: predniSONE 20 mg tablet PO SCH (08:00)
[2022-11-13] MEDS: K and/or MAG REPLACEMENT MC SCH (08:00)
[2022-11-13] MEDS: insulin Lispro (HumaLOG) vial - multi-dose SQ SCH ×2 (09:00→14:30)
[2022-11-13] MEDS: pantoprazole 40mg Tablet.DR PO SCH (09:01)
[2022-11-13] MEDS: heparin, porcine 5000 units/ml vial SQ SCH (09:04)
[2022-11-13] MEDS: azithromycin/NS 500mg/250ml 250 ML IV SCH (11:05)
[2022-11-13 11:51] LABS: CHOLESTEROL 176 MG/DL (0-200); HDL CHOLESTEROL 35 MG/DL (35-60); LDL CHOLESTEROL 85 MG/DL (50-100); TRIGLYCERIDES 427 MG/DL (20-135)
[2022-11-13] MEDS ORDERED: AMOX-117 PO (14:34)
[2022-11-13] MEDS ORDERED: PRED20TA PO (14:34)
--- NOTE | 2022-11-13 16:17 | NUR ---
Pt stable for discharge per Dr Berrios. Discharge instructions given. All questions answered. Medications e-scribed to patient's pharmacy. Pt verbalized understanding. Extended PIV removed, cannula intact. Tele discontinued. All pt belongings collected and sent with pt. Pt was wheeled down to lobby by [employer] and picked up by brother.
[2022-11-14] MEDS ORDERED: atorvastatin 20mg tablet PO SCH (08:00)
[2022-11-14] MEDS ORDERED: aspirin 81mg tab.chew PO SCH (08:30)
== END 2022-11-13 16:03 | disposition home or self-care (01) | DRG 720 ==
LOC: ER 10:40 → ED HOLD 15:09 → EDBEDREQ 11-11 14:06 → PCU 3S 11-11 15:10
PROVIDERS: ADMIT Internal Medicine; ATTEND Internal Medicine
PROC: 5A09357 Assistance with Respiratory Ventilation, Less than 24 Consecutive Hours, Continuous Positive Airway Pressure (ICD-10-PCS; 2022-11-10)
PROC: 5A09357 Assistance with Respiratory Ventilation, Less than 24 Consecutive Hours, Continuous Positive Airway Pressure (ICD-10-PCS; 2022-11-11)
PROC: 4A02XM4 Measurement of Cardiac Total Activity, External Approach (ICD-10-PCS; 2022-11-11)
PROC: 3E033HZ Introduction of Radioactive Substance into Peripheral Vein, Percutaneous Approach (ICD-10-PCS; 2022-11-11)
PROC: 05HB33Z Insertion of Infusion Device into Right Basilic Vein, Percutaneous Approach (ICD-10-PCS; principal; 2022-11-12)
PROC: B54MZZA Ultrasonography of Right Upper Extremity Veins, Guidance (ICD-10-PCS; 2022-11-12)
PROC: 5A09357 Assistance with Respiratory Ventilation, Less than 24 Consecutive Hours, Continuous Positive Airway Pressure (ICD-10-PCS; 2022-11-12)
PROC: 5A09357 Assistance with Respiratory Ventilation, Less than 24 Consecutive Hours, Continuous Positive Airway Pressure (ICD-10-PCS; 2022-11-13)
DX: A41.9 Sepsis, unspecified organism (principal); J96.21 Acute and chronic respiratory failure with hypoxia; N17.9 Acute kidney failure, unspecified; J44.1 Chronic obstructive pulmonary disease with (acute) exacerbation; E87.1 Hypo-osmolality and hyponatremia; E11.65 Type 2 diabetes mellitus with hyperglycemia; E78.00 Pure hypercholesterolemia, unspecified; I25.10 Atherosclerotic heart disease of native coronary artery without angina pectoris; G89.29 Other chronic pain; I48.91 Unspecified atrial fibrillation; G47.33 Obstructive sleep apnea (adult) (pediatric); I12.9 Hypertensive chronic kidney disease with stage 1 through stage 4 chronic kidney disease, or unspecified chronic kidney disease; E66.01 Morbid (severe) obesity due to excess calories; E11.22 Type 2 diabetes mellitus with diabetic chronic kidney disease; N18.9 Chronic kidney disease, unspecified; F15.10 Other stimulant abuse, uncomplicated; I50.9 Heart failure, unspecified; Z85.118 Personal history of other malignant neoplasm of bronchus and lung; Z90.49 Acquired absence of other specified parts of digestive tract; Z90.79 Acquired absence of other genital organ(s); Z87.891 Personal history of nicotine dependence; Z85.47 Personal history of malignant neoplasm of testis; Z85.038 Personal history of other malignant neoplasm of large intestine; Z79.01 Long term (current) use of anticoagulants; Z95.5 Presence of coronary angioplasty implant and graft; Z79.82 Long term (current) use of aspirin; Z79.899 Other long term (current) drug therapy; Z68.45 Body mass index [BMI] 70 or greater, adult
CPT/HCPCS: 36410; 36415; 36600; 71045; 76937; 78452; 80048; 80053; 80061; 81001; 82803; 82948; 83036; 83605; 83735; 83880; 84100; 84145; 84484; 85018; 85025; 87040; 87081; 87088; 93005; 93017; 93308; 93971; 94640; 94660; 94760; 96374; 97116; 97161; 97530; 99285; A4333; A6258; A7015; A9500; G0378; J0456; J0696; J1644; J1815; J1940; J2785; J2920; J2930; J3370; J3480; J3490; J7030; J7512; P9047